=== PATIENT | female | born 1995 | race Caucasian/White ===

== ENCOUNTER 2017-09-23 20:27 | Observation (INO) | payer BC, OTHER ==
[2017-09-23 20:56] LABS: Glucose,Whole Blood 129 mg/dL (75-99)
[2017-09-23 21:39] LABS: Basophils % (A) 1 %; Eosinophils % (A) 0 %; HCT 40.1 % (34.0-46.0); HGB 13.8 gm/dL (11.4-16.0); Lymphocytes # (A) 1.3 k/uL (1.0-4.8); Lymphocytes % (A) 23 %; MCH 30.4 pg (25.0-35.0); MCHC 34.4 g/dL (31.0-37.0); MCV 88.4 fL (80.0-100.0); Mean Platelet Volume 7.6; Monocytes # (A) 0.4 k/uL (0-1.0); Monocytes % (A) 7 %; Neutrophils # (A) 3.9 k/uL (1.3-7.7); Neutrophils % (A) 66 %; Platelet Count 203 k/uL (150-450); RBC 4.54 m/uL (3.80-5.40); RDW 12.5 % (11.5-15.5); WBC 5.9 k/uL (3.8-10.6)
[2017-09-23 21:55] LABS: ALT 20 U/L (9-52); AST 20 U/L (14-36); Albumin 4.4 g/dL (3.5-5.0); Alkaline Phosphatase 77 U/L (38-126); Anion Gap 14 mmol/L; Blood Urea Nitrogen 13 mg/dL (7-17); Calcium 9.5 mg/dL (8.4-10.2); Carbon Dioxide 29 mmol/L (22-30); Chloride 99 mmol/L (98-107); Glucose 114 mg/dL (74-99); Potassium 3.4 mmol/L (3.5-5.1); Sodium 142 mmol/L (137-145); Total Bilirubin 0.7 mg/dL (0.2-1.3); Total Protein 7.9 g/dL (6.3-8.2)
[2017-09-23 21:59] LABS: RBC,Urine >182 /hpf (0-5)
[2017-09-23 22:01] LABS: Appearance,Urine Bloody (Clear)
[2017-09-23 22:02] LABS: Color,Urine Dark Red
--- NOTE | 2017-09-23 22:21 | ED ---
Dizziness HPI - General Chief Complaint: Dizziness Stated Complaint: dizziness/lightheaded Time Seen by Provider: 09/23/17 22:00 Source: patient, RN notes reviewed Mode of arrival: ambulatory Limitations: no limitations - History of Present Illness Initial Comments: This is a 22-year-old female who presents with complaints of some lightheadedness dizziness nausea. She states she's had episodes of these since 2012 she presents tonight with the above complaints as well as a heart rate about 120. She has no chest pain fevers chills sweats she states she has a history of having thyroid problems in the past he currently is on no medication. She currently is on her menstrual period she denies any street drugs alcohol or tobacco. No other complaints at this time she states there is a history of diabetes and both says her family and her mother at early age from a stroke. MD Complaint: dizziness, lightheadedness, other - Related Data Home Medications Medication Instructions Recorded Confirmed No Known Home Medications [No 09/23/17 09/23/17 Known Home Medications] Allergies Allergy/AdvReac Type Severity Reaction Status Date / Time No Known Allergies Allergy Verified 09/23/17 21:53 Review of Systems ROS Statement: Those systems with pertinent positive or pertinent negative responses have been documented in the HPI. ROS Other: All systems not noted in ROS Statement are negative. Past Medical History Past Medical History: No Reported History History of Any Multi-Drug Resistant Organisms: None Reported Past Surgical History: No Surgical Hx Reported Past Psychological History: No Psychological Hx Reported Smoking Status: Never smoker Past Alcohol Use History: Rare Past Drug Use History: None Reported General Exam - General Exam Comments Initial Comments: This is a well-developed well-nourished awake alert oriented 3 female Limitations: no limitations General appearance: alert, anxious Head exam: Present: atraumatic, normocephalic, normal inspection Eye exam: Present: normal appearance, PERRL, EOMI. Absent: scleral icterus, conjunctival injection, periorbital swelling ENT exam: Present: normal exam, mucous membranes moist Neck exam: Present: normal inspection, full ROM, thyromegaly, other (No stridor JVD or bruits she states was some slight tenderness about her thyroid on palpation no nodules are palpable.). Absent: tenderness, meningismus, lymphadenopathy Respiratory exam: Present: normal lung sounds bilaterally. Absent: respiratory distress, wheezes, rales, rhonchi, stridor Cardiovascular Exam: Present: normal rhythm, tachycardia, normal heart sounds. Absent: systolic murmur, diastolic murmur, rubs, gallop, clicks GI/Abdominal exam: Present: soft, normal bowel sounds. Absent: distended, tenderness, guarding, rebound, rigid Extremities exam: Present: normal inspection, full ROM, normal capillary refill. Absent: tenderness, pedal edema, joint swelling, calf tenderness Back exam: Present: normal inspection Neurological exam: Present: alert, oriented X3, CN II-XII intact Psychiatric exam: Present: normal affect, normal mood Skin exam: Present: warm, dry, intact, normal color. Absent: rash Course Vital Signs 09/23/17 09/23/17 20:52 22:10 Temperature 99.1 F Pulse Rate 121 H 113 H Respiratory 16 18 Rate Blood Pressure 136/93 141/81 O2 Sat by Pulse 96 98 Oximetry EKG Findings - EKG Results: EKG: interpreted by ERMD, sinus rhythm (Sinus tachycardia rate of 109. Interval 122 QRS 82 QT since QTC 3:30/447 occasional PVC noted.) Medical Decision Making - Medical Decision Making I did reevaluate patient several occasions she still remains tachycardic even after fluid challenging. I did discuss case with her family as well as with Dr. Tyler patient will be admitted for observation for evaluation of tachycardia presentation of dizziness and lightheadedness. - Lab Data Result diagrams: 09/23/17 21:12 09/23/17 21:12 Lab Results 09/23/17 09/23/17 09/23/17 Range/Units 20:55 21:12 21:12 WBC 5.9 (3.8-10.6) k/uL RBC 4.54 (3.80-5.40) m/uL Hgb 13.8 (11.4-16.0) gm/dL Hct 40.1 (34.0-46.0) % MCV 88.4 (80.0-100.0) fL MCH 30.4 (25.0-35.0) pg MCHC 34.4 (31.0-37.0) g/dL RDW 12.5 (11.5-15.5) % Plt Count 203 (150-450) k/uL Neutrophils % 66 % Lymphocytes % 23 % Monocytes % 7 % Eosinophils % 0 % Basophils % 1 % Neutrophils # 3.9 (1.3-7.7) k/uL Lymphocytes # 1.3 (1.0-4.8) k/uL Monocytes # 0.4 (0-1.0) k/uL Eosinophils # 0.0 (0-0.7) k/uL Basophils # 0.0 (0-0.2) k/uL D-Dimer (<0.60) mg/L FEU Sodium 142 (137-145) mmol/L Potassium 3.4 L (3.5-5.1) mmol/L Chloride 99 (98-107) mmol/L Carbon Dioxide 29 (22-30) mmol/L Anion Gap 14 mmol/L BUN 13 (7-17) mg/dL Creatinine 0.56 (0.52-1.04) mg/dL Est GFR (CKD-EPI)AfAm >90 (>60 ml/min/1.73 sqM) Est GFR (CKD-EPI)NonAf >90 (>60 ml/min/1.73 sqM) Glucose 114 H (74-99) mg/dL POC Glucose (mg/dL) 129 H (75-99) mg/dL POC Glu [employer] Supervisor ID Vanessa Vogt Calcium 9.5 (8.4-10.2) mg/dL Magnesium (1.6-2.3) mg/dL Total Bilirubin 0.7 (0.2-1.3) mg/dL AST 20 (14-36) U/L ALT 20 (9-52) U/L Alkaline Phosphatase 77 (38-126) U/L Total Creatine Kinase (30-135) U/L CK-MB (CK-2) (0.0-2.4) ng/mL CK-MB (CK-2) Rel Index Troponin I (0.000-0.034) ng/mL Total Protein 7.9 (6.3-8.2) g/dL Albumin 4.4 (3.5-5.0) g/dL TSH (0.465-4.680) mIU/L Free T4 (0.78-2.19) ng/dL Urine Color Urine Appearance (Clear) Urine RBC (0-5) /hpf Urine HCG, Qual (Not Detectd) 09/23/17 09/23/17 09/23/17 Range/Units 21:12 21:12 21:12 WBC (3.8-10.6) k/uL RBC (3.80-5.40) m/uL Hgb (11.4-16.0) gm/dL Hct (34.0-46.0) % MCV (80.0-100.0) fL MCH (25.0-35.0) pg MCHC (31.0-37.0) g/dL RDW (11.5-15.5) % Plt Count (150-450) k/uL Neutrophils % % Lymphocytes % % Monocytes % % Eosinophils % % Basophils % % Neutrophils # (1.3-7.7) k/uL Lymphocytes # (1.0-4.8) k/uL Monocytes # (0-1.0) k/uL Eosinophils # (0-0.7) k/uL Basophils # (0-0.2) k/uL D-Dimer (<0.60) mg/L FEU Sodium (137-145) mmol/L Potassium (3.5-5.1) mmol/L Chloride (98-107) mmol/L Carbon Dioxide (22-30) mmol/L Anion Gap mmol/L BUN (7-17) mg/dL Creatinine (0.52-1.04) mg/dL Est GFR (CKD-EPI)AfAm (>60 ml/min/1.73 sqM) Est GFR (CKD-EPI)NonAf (>60 ml/min/1.73 sqM) Glucose (74-99) mg/dL POC Glucose (mg/dL) (75-99) mg/dL POC Glu [employer] Supervisor ID Calcium (8.4-10.2) mg/dL Magnesium 2.2 (1.6-2.3) mg/dL Total Bilirubin (0.2-1.3) mg/dL AST (14-36) U/L ALT (9-52) U/L Alkaline Phosphatase (38-126) U/L Total Creatine Kinase (30-135) U/L CK-MB (CK-2) (0.0-2.4) ng/mL CK-MB (CK-2) Rel Index Troponin I (0.000-0.034) ng/mL Total Protein (6.3-8.2) g/dL Albumin (3.5-5.0) g/dL TSH 5.610 H (0.465-4.680) mIU/L Free T4 0.92 (0.78-2.19) ng/dL Urine Color Dark Red Urine Appearance Bloody H (Clear) Urine RBC >182 H (0-5) /hpf Urine HCG, Qual Not Detected (Not Detectd) 09/23/17 09/23/17 Range/Units 21:12 21:12 WBC (3.8-10.6) k/uL RBC (3.80-5.40) m/uL Hgb (11.4-16.0) gm/dL Hct (34.0-46.0) % MCV (80.0-100.0) fL MCH (25.0-35.0) pg MCHC (31.0-37.0) g/dL RDW (11.5-15.5) % Plt Count (150-450) k/uL Neutrophils % % Lymphocytes % % Monocytes % % Eosinophils % % Basophils % % Neutrophils # (1.3-7.7) k/uL Lymphocytes # (1.0-4.8) k/uL Monocytes # (0-1.0) k/uL Eosinophils # (0-0.7) k/uL Basophils # (0-0.2) k/uL D-Dimer 0.74 H (<0.60) mg/L FEU Sodium (137-145) mmol/L Potassium (3.5-5.1) mmol/L Chloride (98-107) mmol/L Carbon Dioxide (22-30) mmol/L Anion Gap mmol/L BUN (7-17) mg/dL Creatinine (0.52-1.04) mg/dL Est GFR (CKD-EPI)AfAm (>60 ml/min/1.73 sqM) Est GFR (CKD-EPI)NonAf (>60 ml/min/1.73 sqM) Glucose (74-99) mg/dL POC Glucose (mg/dL) (75-99) mg/dL POC Glu [employer] Supervisor ID Calcium (8.4-10.2) mg/dL Magnesium (1.6-2.3) mg/dL Total Bilirubin (0.2-1.3) mg/dL AST (14-36) U/L ALT (9-52) U/L Alkaline Phosphatase (38-126) U/L Total Creatine Kinase 57 (30-135) U/L CK-MB (CK-2) 0.4 (0.0-2.4) ng/mL CK-MB (CK-2) Rel Index 0.7 Troponin I <0.012 (0.000-0.034) ng/mL Total Protein (6.3-8.2) g/dL Albumin (3.5-5.0) g/dL TSH (0.465-4.680) mIU/L Free T4 (0.78-2.19) ng/dL Urine Color Urine Appearance (Clear) Urine RBC (0-5) /hpf Urine HCG, Qual (Not Detectd) - Radiology Data Radiology results: report reviewed (I did review the imaging and reports no acute findings.), image reviewed Disposition Clinical Impression: Tachycardia, Dizziness, Hypokalemia Disposition: ADMITTED IP TO THIS [facility] Condition: Stable Referrals: None,Stated [Primary Care Provider] - 1-2 days
--- NOTE | 2017-09-23 22:36 | XR ---
EXAMINATION TYPE: XR chest 2V DATE OF EXAM: 09/23/2017 COMPARISON: NONE HISTORY: Dizziness TECHNIQUE: Frontal and lateral views of the chest are obtained. FINDINGS: Heart and mediastinum are normal. Lungs are clear. Diaphragm is normal. Bony thorax and so ft tissues appear normal. IMPRESSION: Normal chest
[2017-09-23 22:52] LABS: Magnesium 2.2 mg/dL (1.6-2.3)
[2017-09-23 22:56] LABS: Creatine Kinase 57 U/L (30-135)
[2017-09-23 23:10] LABS: Creatine Kinase MB 0.4 ng/mL (0.0-2.4); Troponin I <0.012 ng/mL (0.000-0.034)
[2017-09-23] MEDS ORDERED: SODIUM CHLORIDE 0.9% 1,000 ML IV STA (23:34)
[2017-09-23] MEDS ORDERED: RX INFO: IV CONTRAST WAS GIVEN 1 EACH MISC MISCELLANE PRN (23:36)
[2017-09-23 23:48] LABS: T4, Free (Free Thyroxine) 0.92 ng/dL (0.78-2.19)
--- NOTE | 2017-09-24 00:30 | CT ---
EXAMINATION TYPE: CT angio chest DATE OF EXAM: 09/24/2017 12:23 AM COMPARISON: NONE HISTORY: R/O pE CT DLP: 481.90 mGycm Automated exposure control for dose reduction was used. CONTRAST: CTA scan of the thorax is performed with IV Contrast, patient injected with 100 mL of Omnipaque 350, pulmonary embolism protocol. There are 3-D post processed images.. FINDINGS: The lungs are clear of infiltrate. There is no evidence of a pulmonary mass. There is no pleural effu selena. There is no pericardial effusion. I see no filling defects in the pulmonary arteries. There is no mediastinal adenopathy. There are no hilar masses. There is no evidence of aortic aneurysm or dissection. The bony thorax appears intact. IMPRESSION: NEGATIVE EXAM. NO EVIDENCE OF PULMONARY EMBOLISM.
[2017-09-24] MEDS ORDERED: NALOXONE 0.4 MG/ML 1 ML VIAL IV PRN (00:43)
[2017-09-24] MEDS ORDERED: 0.9% NACL WITH KCL 20 MEQ/L 1,000 ML IV SCH (00:45)
[2017-09-24] MEDS ORDERED: POTASSIUM CHLORIDE ER 20 MEQ TAB.ER PO STA (00:45)
--- NOTE | 2017-09-24 08:56 | ECHOF ---
Referral Reason:Tachycardia, dizziness MEASUREMENTS -------- HEIGHT: 160.0 cm WEIGHT: 93.9 kg BP: 133/87 RVIDd: 1.9 cm (< 3.3) IVSd: 0.9 cm (0.6 - 1.1) LVIDd: 4.2 cm (3.9 - 5.3) LVPWd: 1.2 cm (0.6 - 1.1) IVSs: 1.4 cm LVIDs: 2.5 cm LVPWs: 1.7 cm LAESV Index (A-L): 14.76 ml/m Ao Diam: 2.6 cm (2.0 - 3.7) AV Cusp: 1.9 cm (1.5 - 2.6) LA Diam: 3.1 cm (2.7 - 3.8) MV EXCURSION: 15.184 mm (> 18.000) MV EF SLOPE: 78 mm/s (70 - 150) EPSS: 0.7 cm MV E Jeffy: 0.68 m/s MV DecT: 210 ms MV A Jeffy: 0.56 m/s MV E/A Ratio: 1.20 RAP: 5.00 mmHg RVSP: 30.81 mmHg FINDINGS -------- Sinus rhythm. This was a technically good study. The left ventricular size is normal. Left ventricular wall thickness is normal. Overall left vent ricular systolic function is normal with, an EF between 55 - 60 %. The right ventricle is normal in size and function. The left atrium is normal in size. The right atrium is normal in size. The aortic valve is trileaflet, and appears structurally normal. No aortic stenosis or regurgitation. There is trace mitral regurgitation. Trace tricuspid regurgitation present. The right ventricular systolic pressure, as measured by Dopp ler, is 30.81mmHg. Pulmonic valve appears structurally normal. The aortic root size is normal. Normal inferior vena cava with normal inspiratory collapse consistent with estimated right atrial pre ssure of 5 mmHg. There is a trivial pericardial effusion present. CONCLUSIONS -------- 1. Sinus rhythm. 2. This was a technically good study. 3. The left ventricular size is normal. 4. Left ventricular wall thickness is normal. 5. Overall left ventricular systolic function is normal with, an EF between 55 - 60 %. 6. The right ventricle is normal in size and function. 7. The left atrium is normal in size. 8. The right atrium is normal in size. 9. The aortic valve is trileaflet, and appears structurally normal. No aortic stenosis or regurgitati on. 10. There is trace mitral regurgitation. 11. Trace tricuspid regurgitation present. 12. The right ventricular systolic pressure, as measured by Doppler, is 30.81mmHg. 13. Pulmonic valve appears structurally normal. 14. The aortic root size is normal. 15. Normal inferior vena cava with normal inspiratory collapse consistent with estimated right atrial pressure of 5 mmHg. 16. There is a trivial pericardial effusion present. SUPERVISOR TESTING: Joan Baeza RDCS
--- NOTE | 2017-09-24 11:52 | P.CRDCN ---
History of Present Illness Consult date: 09/24/17 History of present illness: Mrs. Iyer is a pleasant 22-year-old female with no significant past medical history. She denies history or coronary artery disease, hypertension, dyslipidemia or diabetes mellitus. She has never seen a fuel operator for any reason. We have been asked to see her in consultation for tachycardia. On Friday of this week she started feeling dizzy and nauseated. The episode occurred when she stood up to try and walk to the bathroom and lasted about 10 minutes. At first she felt lightheaded but when she tried to walk the room started spinning. She has also experienced extreme chills over the past 4 days with sore throat. No fevers. The symptoms have been intermittent since then with no aggravating or alleviating factors. She states she has had this going on intermittently since 2012. She is on her menstrual cycle currently. EKG on arrival reveals sinus tachycardia with one PVC, rate 109. No evidence of ST or T-wave abnormality. No old for comparison. Chest xray negative for an acute cardiopulmonary process. CTA negative for pulmonary embolism or aortic aneurysm/dissection. Echocardiogram performed reveals preserved left ventricular systolic function with ejection fraction 55-60% with trace TR and trivial pericardial effusion. Laboratory data reviewed, hemoglobin 13.8, platelets 203, d-dimer 0.74, potassium 3.4, magnesium 2.2, creatinine 0.56, cardiac enzymes negative 1, TSH 5.6, free T4 0.92. She takes no daily medications. Review of Systems At the time of my exam: CONSTITUTIONAL: Denies fever. Denies chills. EYES: Denies blurred vision. Denies vision changes. Denies eye pain. EARS, NOSE, MOUTH & THROAT: Denies headache. Denies sore throat. Denies ear pain. CARDIOVASCULAR: Denies chest pain. Denies shortness of breath. Denies orthopnea. Denies PND. Denies palpitations. RESPIRATORY: Denies cough. GASTROINTESTINAL: Denies abdominal pain. Denies diarrhea. Denies constipation. Denies nausea. Denies vomiting. MUSCULOSKELETAL: Denies myalgias. INTEGUMENTARY: Denies pruitis. Denies rash. NEUROLOGIC: Denies numbness. Denies tingling. Denies weakness. PSYCHIATRIC: Denies anxiety. Denies depression. ENDOCRINE: Denies fatigue. Denies weight change. Denies polydipsia. Denies polyurina. GENITOURINARY: Denies burning, hematuria or urgency with micturation. HEMATOLOGIC: Denies history of anemia. Denies bleeding. Past Medical History Past Medical History: No Reported History History of Any Multi-Drug Resistant Organisms: None Reported Past Surgical History: No Surgical Hx Reported Past Psychological History: No Psychological Hx Reported Smoking Status: Never smoker Past Alcohol Use History: Rare Past Drug Use History: None Reported Medications and Allergies Home Medications Medication Instructions Recorded Confirmed Type No Known Home Medications [No 09/23/17 09/23/17 History Known Home Medications] Allergies Allergy/AdvReac Type Severity Reaction Status Date / Time No Known Allergies Allergy Verified 09/23/17 21:53 Physical Exam Vitals: Vital Signs Temp Pulse Pulse Resp BP Pulse Ox 09/24/17 08:46 100.1 F H 107 H 15 129/89 97 09/24/17 08:02 96 16 133/87 96 09/24/17 06:36 95 20 129/74 95 09/24/17 05:43 102 H 18 131/85 96 09/24/17 04:39 101 H 16 129/71 96 09/24/17 03:31 104 H 18 127/73 98 09/24/17 02:54 110 H 18 144/87 98 09/24/17 01:39 107 H 18 159/87 99 09/24/17 00:47 115 H 18 143/88 98 09/23/17 22:11 115 H 09/23/17 22:10 113 H 18 141/81 98 09/23/17 20:52 99.1 F 121 H 16 136/93 96 Intake and Output 09/23/17 09/24/17 09/24/17 22:59 06:59 14:59 Other: Weight 93.894 kg Blood pressure 129/89 heart rate 107 temperature 100.1F maintaining oxygen saturation on room air GENERAL: This is a 22-year-old female in no apparent distress at the time of my examination. Obese. HEENT: Head is atraumatic, normocephalic. Pupils are equal, round. Sclerae anicteric. Conjunctivae are clear. Mucous membranes of the mouth are moist. Neck is supple. There is no jugular venous distention. No carotid bruit is heard. LUNGS: Clear to auscultation no wheezes, rales or rhonchi. No chest wall tenderness is noted on palpation or with deep breathing. HEART: Regular rate and rhythm without murmurs, rubs or gallops. S1 and S2 heard. ABDOMEN: Soft, nontender. Bowel sounds are heard. No organomegaly noted. EXTREMITIES: No evidence of peripheral edema and no calf tenderness noted. VASCULAR: Radial and dorsalis pedis pulses palpated, no evidence of clubbing. NEUROLOGIC: Patient is awake, alert and oriented x3. Results 09/23/17 21:12 09/23/17 21:12 Cardiac Enzymes 09/23/17 09/23/17 Range/Units 21:12 21:12 AST 20 (14-36) U/L CK-MB (CK-2) 0.4 (0.0-2.4) ng/mL Troponin I <0.012 (0.000-0.034) ng/mL CBC 09/23/17 Range/Units 21:12 WBC 5.9 (3.8-10.6) k/uL RBC 4.54 (3.80-5.40) m/uL Hgb 13.8 (11.4-16.0) gm/dL Hct 40.1 (34.0-46.0) % Plt Count 203 (150-450) k/uL Comprehensive Metabolic Panel 09/23/17 Range/Units 21:12 Sodium 142 (137-145) mmol/L Potassium 3.4 L (3.5-5.1) mmol/L Chloride 99 (98-107) mmol/L Carbon Dioxide 29 (22-30) mmol/L BUN 13 (7-17) mg/dL Creatinine 0.56 (0.52-1.04) mg/dL Glucose 114 H (74-99) mg/dL Calcium 9.5 (8.4-10.2) mg/dL AST 20 (14-36) U/L ALT 20 (9-52) U/L Alkaline Phosphatase 77 (38-126) U/L Total Protein 7.9 (6.3-8.2) g/dL Albumin 4.4 (3.5-5.0) g/dL Current Medications Generic Name Dose Route Start Last Admin Trade Name Freq PRN Reason Stop Dose Admin Potassium Chloride/Sodium Chloride 1,000 mls @ 50 mls/hr 09/24/17 00:45 09/24 01:35 Ns-Kcl 20 Meq/L Iv Solution IV 50 mls/hr .Q20H DEEJAY Administration Miscellaneous Information 1 each 09/23/17 23:36 09/23/17 23:46 Rx Info: Iv Contrast Was Given MISCELLANE 09/25/17 23:36 1 each DAILY PRN Administration Per Protocol Naloxone HCl 0.2 mg 09/24/17 00:43 Narcan IV Q2M PRN Opioid Reversal Intake and Output 09/23/17 09/24/17 09/24/17 22:59 06:59 14:59 Other: Weight 93.894 kg 09/23/17 21:12 09/23/17 21:12 Assessment and Plan Assessment: ASSESSMENT 1. Sinus tachycardia with dizziness, nausea and diaphoresis. Febrile. PE ruled out. 2. Febrile illness with throat pain and possible inner ear problem with vertigo like symptoms. 3. Hypokalemia, receiving supplementation in IV fluids as well as PO potassium last night PLAN 2D echocardiogram and doppler study has been reviewed. Obtain orthostatic blood pressures. Continue with IV hydration and medical management of possible viral illness. Stable from a cardiac perspective. No further inpatient work-up needed. Thank you kindly for this consultation. Nurse Practitioner note has been reviewed, I agree with a documented findings and plan of care. Patient was seen and examined.
--- NOTE | 2017-09-24 15:14 | HP ---
HISTORY AND PHYSICAL DATE OF ADMISSION: September 24, 2017. PRESENT COMPLAINT: Dizziness. HISTORY OF PRESENTING COMPLAINT: This is a 22-year-old patient. The patient does not take any medications at home. She has had different symptoms. She says she comes in because she has been dizzy on and off for a long time, but more so recently. Her boyfriend is present who she lives with. Normally, she will get episodes of dizziness that lasts for a few minutes and then goes away. This time she was dizzy for much longer for well over 2 hours, she thinks at least. Had some nausea. Denies any ear symptoms. Did have a bit of a sore throat. This dizziness is not necessarily related to activity. She is able to walk but sometimes a bit slow she says. No focal weakness in the arms or legs. No change in vision. Denies any fever. She was a bit tachycardic when she came to the ER. Slightly elevated D-dimer. PE was ruled out ruled out. The patient does feel a bit tired. REVIEW OF SYSTEMS: Constitutional: Tired. Appetite is good. No weight loss. HEENT none. Respiratory none. Cardiovascular no chest pain. Gastrointestinal: Some nausea. none. Musculoskeletal none. Dermatological and hematologic, lymphatic none. Psychiatry none. Neurological as above including no headaches. PAST MEDICAL HISTORY: None. PAST SURGICAL HISTORY: None. SOCIAL HISTORY: Lives with a boyfriend. 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 She denies alcohol, drugs, or smoking. FAMILY HISTORY: Reviewed noncontributory to presentation. HOME MEDICATIONS: None. ALLERGIES: None. PHYSICAL EXAMINATION: On examination vital signs on presentation temperature 99.1, pulse 121, respiration 16, blood pressure 136/93, pulse ox 96% on room air. GENERAL APPEARANCE: Overweight, BMI 36.7, sitting up. Eyes: Pupils equal. Conjunctivae normal. HEENT: Hair is colored green. External appearance of nose and ears normal. Oral cavity normal. Neck JVD not raised. Mass not palpable. Respiratory effort normal. Lungs fair entry. Cardiovascular 1st and second sounds normal. No edema. ABDOMEN: Soft, nontender. Liver and spleen not palpable. Lymphatics: No lymph nodes palpable in the neck and axilla. PSYCHIATRY: Alert and orient x3. Mood and affect normal. Neurological: Pupils equal. Cranial nerves grossly intact. Power and sensation grossly intact. INVESTIGATIONS: White count 5.9. D-dimer 0.74. Potassium 3.4, BUN and creatinine is normal. TSH 5.6, free T4 0.92. Chest CTA negative for PE. Chest x-ray negative. The EKG shows normal sinus rhythm. 2D echocardiogram appears to be normal. ASSESSMENT: 1. This is a patient who presents with dizziness coming on and off for quite some time for very short-lived for about 2 minutes to 3 minutes, but has a much worsening episode in the last 2 weeks, more so yesterday, had some nausea. Denies any ear symptoms. The patient has a low-grade fever, likely from viral pharyngitis. Need to rule out a central cause of her presentation. 2. Subclinical hypothyroid in a patient whose TSH is less than 10. Free T4 was on the lower side of normal. The patient definitely is overweight, tired, may benefit from a small dose of Synthroid. 3. Obesity BMI 36.7. PLAN: We will go ahead and order an MRI of the brain, get a neurological opinion. I started the patient on Synthroid 25 mcg. Cardiology was consulted because of the tachycardia. Care was discussed with the patient and boyfriend. MMODL / IJN: [id number] /
[2017-09-24] MEDS: LEVOTHYROXINE 25 MCG TAB PO SCH (17:06)
[2017-09-24] MEDS: ENOXAPARIN 40 MG/0.4 ML SYRINGE SQ SCH (17:07)
[2017-09-24] MEDS: MECLIZINE 12.5 MG TAB PO SCH ×3 (17:08→21:30)
[2017-09-24 19:50] VITALS: RESP 16
--- NOTE | 2017-09-24 22:37 | MR ---
EXAMINATION TYPE: MR brain wo con DATE OF EXAM: 09/24/2017 COMPARISON: NONE HISTORY: 22-year-old female recurrent dizziness TECHNIQUE: Multiplanar, multisequence images of the brain and brainstem were acquired without IV con trast. Diffusion weighted imaging is performed. FINDINGS: No evidence for acute infarction, hemorrhage, mass, mass effect, midline shift, herniation, effacemen t of basal cisterns, or extra-axial fluid collection. The ventricles and sulci are age-appropriate. Major intracranial flow voids are intact. T2/FLAIR weighted sequences show no white matter signal abnormality. Midline structures demonstrate normal morphology. The craniocervical junction is normal. Mild mucosal thickening within the ethmoid air cells and maxillary sinuses. Globes are intact. IMPRESSION: No intracranial abnormality seen. Mild chronic ethmoid and maxillary sinus disease.
[2017-09-25] MEDS: LEVOTHYROXINE 25 MCG TAB PO SCH (06:43)
[2017-09-25 08:06] VITALS: BP 127/76; PULSE 83; TEMP 99.4
[2017-09-25] MEDS: MECLIZINE 12.5 MG TAB PO SCH ×2 (09:00→16:28)
[2017-09-25] MEDS: ENOXAPARIN 40 MG/0.4 ML SYRINGE SQ SCH (09:00)
--- NOTE | 2017-09-25 09:39 | CONS ---
CONSULTATION DATE OF CONSULTATION: 09/24/2017 CHIEF COMPLAINT: Dizziness. HISTORY OF PRESENT ILLNESS: The patient is a pleasant 22-year-old, female, who was being evaluated today on 09/24/2017 by the neurology service per the request of Dr. Tyler for dizziness. The patient was brought into [facility] Emergency Room with the complaints of dizziness that began suddenly. She describes the dizziness as an off balance sensation with occasional vertigo. Her symptoms lasted several hours which prompted her to come to the emergency room. She states that she has had similar symptoms, but those were only lasting a few seconds to a few minutes in the past. She denies any lateralizing numbness or weakness. She reported that her body position did not affect the severity of the dizziness. She denies any recent head injuries. In the emergency room, her laboratory workup showed a normal CBC and cardiac enzymes. Her comprehensive metabolic profile was normal except for minimal hypokalemia at 3.4. Her TSH was slightly elevated at 5.61, but her T4 level was normal. Her D-dimer was slightly elevated at 0.74. She did undergo a CT angiogram of the chest which showed no evidence of any pulmonary embolism. The patient was given Antivert 12.5 mg and admitted for further workup and management to the observation unit. At the time of my evaluation, she reports that her symptoms have significantly improved with her Antivert dose. PAST MEDICAL HISTORY: Negative. SOCIAL HISTORY: She denies any tobacco, alcohol or drug use. FAMILY HISTORY: Noncontributory. HOME MEDICATIONS: None. ALLERGIES: No known drug allergies. REVIEW OF SYSTEMS: As mentioned above and otherwise negative. PHYSICAL EXAM: Vital signs show a temperature of 98.4, pulse 105, respirations 17, blood pressure 141/75. GENERAL APPEARANCE: The patient is a well-developed female, who appears to be in no acute distress. HEENT: Normocephalic, atraumatic, no facial asymmetry is seen, extraocular muscles are intact with no nystagmus noticed. NECK: Supple with no masses felt. CARDIOVASCULAR: Regular rate and rhythm. ABDOMEN: Nontender, nondistended. Extremities showed no edema or clubbing. NEUROLOGICAL EXAM: The patient is alert, aware and oriented x3. Speech and language are normal. Strength is full in all 4 extremities. Sensory exam was normal to light touch in all 4 extremities. No tremors or seizure-like activity is seen. No facial asymmetry is noticed on cranial nerve testing. IMPRESSION: 1. Vertigo. 2. Mild hypokalemia. RECOMMENDATION: The patient's symptoms are consistent with vertigo but it is atypical as symptoms are not affected by any change in position. An MRI of the brain has been ordered. I will order an EEG. Her symptoms have significantly improved with her Antivert dosing. Continue Antivert as needed. If her MRI of the brain comes back negative, she will be cleared for discharge from a neurology standpoint. She has no other neurological complaints and no abnormalities noticed on her neurological examination. I will continue to follow with you as needed. Thank you for allowing me to participate in the care of your patient. If you have any questions, please feel free to contact me. RAEANN / JAMES: [id number] /
--- NOTE | 2017-09-25 15:27 | DS ---
DISCHARGE SUMMARY DATE OF ADMISSION: 09/24/17. DATE OF DISCHARGE: 09/25/17 FINAL DIAGNOSES: 1. Possible acute vestibulitis. 2. Hypothyroid, new diagnosis. 3. Obesity, BMI 36.7. HOSPITAL COURSE: This patient presented with dizziness and given Antivert which she felt actually better with. The patient's TSH was slightly high at 5.6 and free T4 in the low normal side. She is put on a small dose of Synthroid. She had no further symptoms of symptoms. Chest CTA was negative for PE. Did have a 2-D echocardiogram that shows preserved LV function. The patient is cleared by Dr. Coffey and Cardiology, Dr. Antonio. EXAM: Lungs are clear. Cardiovascular: First and second sounds normal. DC MEDICATIONS: 1. Synthroid 25 mcg a day. 2. Antivert 12.5, t.i.d. for 6 tablets. FOLLOWUP: Follow up with Dr. Coffey in 1 week, Dr. Land in 3 days. Additionally, patient MRI of the brain was unremarkable. X-ray showing some sinusitis. EEG was pending. Got an order from them to let the patient to go home. MMODL / IJN: [id number] /
--- NOTE | 2017-09-25 18:12 | EEG ---
ELECTROENCEPHALOGRAM REPORT DATE OF SERVICE: 09/25/2017. REASON FOR TESTING: Dizziness. DESCRIPTION OF THE PROCEDURE: This EEG was performed using a 21 channel digital electroencephalograph, following international 10-20 system. DESCRIPTION OF THE RECORDING: From the beginning of the tracing, and with patient's eyes closed, the background rhythm was mostly consisting of 10 Hz alpha frequency in the posterior occipital leads. No obvious asymmetry is seen. Frequent movement and muscle artifacts are seen. Photic stimulation was performed with a minimal driving response seen. No pathological waves were elicited. Hyperventilation was not performed. Later in the tracing, the patient does reach stage II of sleep, and occasional K complexes and sleep spindles are seen. No epileptiform discharges were seen. Her EKG lead showed a regular rate and rhythm. INTERPRETATION: This asleep and awake EEG can be considered within normal limits. There is no asymmetry seen. No epileptiform discharges were noticed. The absence of epileptiform discharges does not rule out the diagnosis of epilepsy, therefore clinical correlation is recommended. MMJUAN LUIS / AICHAN: [id number] /
--- NOTE | 2017-09-26 05:40 | P.PN ---
Subjective Progress Note Date: 09/25/17 Principal diagnosis: Dizziness Interval Update: 09/25/17: Neurology is following on a 22-year-old female being for dizziness. Patient was brought to the ED for dizziness and disequilibrium like symptoms. Patient does describes experiencing these occurrences since she was a young girl but they have recentluy become more frequent and more intense. Patient's symptoms increase in our around her menstraul cycle. Patient denies her body position affects intensity, frequency or duration. Denies any recent head or neck trauma. Currently laboratory bloodwork was normal including CBC, CMP with the exception of hypokalemia. TSH was slightly elevated but T4 was normal. D- dimer was slightly elevated but CT of the chest noted no abnormalities. Patient was given Antivert in the ED and admitted for further observation and workup. Objective - Vital Signs Vital signs: Vital Signs Temp 99.4 F 09/25/17 08:00 Pulse 83 09/25/17 08:00 Resp 16 09/25/17 08:00 BP 127/76 09/25/17 08:00 Pulse Ox 98 09/25/17 08:00 Intake & Output 09/25/17 09/25/17 09/26/17 06:59 18:59 06:59 Weight 91.6 kg Other: Voiding Method Toilet Toilet # Voids 1 - Exam General appearance: Alert & oriented x4, no apparent distress. Head: Atraumatic, normocephalic, normal inspection Eyes: Well appearance, PERRLA, EOMI. Absent scleral icterus, conjunctival injection, nystagmus, periorbital swelling. Ear, nose and throat: Normal exam, mucous membranes moist Neck: Normal inspection, absent tenderness, lymphadenopathy. Respiratory: No increased work of breathing Cardiovascular: Regular rate, rhythm GI/abdominal: Normal bowel sounds, nondistended, no tenderness, no guarding, no rebound, no rigidity. Extremities: All range of motion, normal capillary refill, no tenderness, pedal edema joint swelling, calf tenderness. Neurological: cranial nerves II through XII intact no lateralizing weakness no seizure activity noted on physical exam no pronator drift and no nystagmus. no facial asymmetry note Strength was equal and symmetric in all 4 extremities Sensation was normal in all 4 extremities Psychological: Mood and affect appropriate for setting. - Labs CBC & Chem 7: 09/23/17 21:12 09/23/17 21:12 Assessment and Plan (1) Dizziness Status: Acute Code(s): R42 - DIZZINESS AND GIDDINESS SNOMED Code(s): 358611701 (2) Hypokalemia Status: Acute Code(s): E87.6 - HYPOKALEMIA SNOMED Code(s): 10308088 Plan: 1. Dizziness 2. Hypokalemia Patient has had improvement with antivert. He syptoms have abated with medication use. Patient's MRI brain was unremarkable for any contributory etiology. EEG was normal. Status: Patient can be cleared for discharge from a neurological standpoint. I have discussed the plan of care with the physician prior to implementation and he agrees with the plan as implemented.
== END 2017-09-25 16:18 | disposition home or self-care (01) ==
LOC: EC 20:27 → 3OBS 09-24 00:43
PROVIDERS: ADMIT Hospitalist; ATTEND Hospitalist
DX: R42 Dizziness and giddiness (principal); E87.6 Hypokalemia; E03.9 Hypothyroidism, unspecified; E66.9 Obesity, unspecified; Z68.36 Body mass index [BMI] 36.0-36.9, adult; R79.89 Other specified abnormal findings of blood chemistry; R50.9 Fever, unspecified; R07.0 Pain in throat; Z83.3 Family history of diabetes mellitus; Z82.3 Family history of stroke
CPT/HCPCS: 96366 ×16; 96361 ×2; 96365 ×2; 99285 ×2; 36415; 95819; 93005; 93306; 85379; 84439; 80053; 84443; 82550; 82553; 83735; 84484; 85025; 81001; 81025; 71046; 71275; 70551; G0378 ×2; Q9967

== ENCOUNTER 2018-09-14 16:09 | Emergency (ER) | payer BC ==
[2018-09-14] MEDS ORDERED: SODIUM CHLORIDE 0.9% 1,000 ML IV STA (17:26)
[2018-09-14 17:54] LABS: Basophils # (A) 0.1 k/uL (0-0.2); Basophils % (A) 1 %; Eosinophils # (A) 0.2 k/uL (0-0.7); Eosinophils % (A) 2 %; HCT 49.9 % (34.0-46.0); HGB 16.4 gm/dL (11.4-16.0); Lymphocytes # (A) 1.9 k/uL (1.0-4.8); Lymphocytes % (A) 18 %; MCH 30.4 pg (25.0-35.0); MCHC 32.8 g/dL (31.0-37.0); MCV 92.6 fL (80.0-100.0); Mean Platelet Volume 6.2; Monocytes # (A) 0.4 k/uL (0-1.0); Monocytes % (A) 4 %; Neutrophils # (A) 7.5 k/uL (1.3-7.7); Neutrophils % (A) 74 %; Platelet Count 298 k/uL (150-450); RBC 5.39 m/uL (3.80-5.40); RDW 13.2 % (11.5-15.5); WBC 10.1 k/uL (3.8-10.6)
[2018-09-14 18:00] LABS: Appearance,Urine Cloudy (Clear); Bacteria,Urine Occasional /hpf; Bilirubin,Urine Negative (Negative); Blood,Urine Trace (Negative); Color,Urine Yellow; Glucose,Urine (UA) Negative (Negative); Ketones,Urine Negative (Negative); Leukocyte Esterase,Urine Large (Negative); Mucus,Urine Rare /hpf; Nitrite,Urine Negative (Negative); PH, Urine 5.5 (5.0-8.0); Protein,Urine Trace (Negative); RBC,Urine 6 /hpf (0-5); Specific Gravity,Urine 1.024 (1.001-1.035); Squamous Epithelial Cell,Urine 23 /hpf (0-4); Urobilinogen,Urine <2.0 mg/dL (<2.0)
[2018-09-14 18:06] LABS: ALT 33 U/L (9-52); AST 27 U/L (14-36); Albumin 4.8 g/dL (3.5-5.0); Alkaline Phosphatase 80 U/L (38-126); Anion Gap 10 mmol/L; Blood Urea Nitrogen 13 mg/dL (7-17); Calcium 9.7 mg/dL (8.4-10.2); Carbon Dioxide 27 mmol/L (22-30); Chloride 106 mmol/L (98-107); Glucose 104 mg/dL (74-99); Potassium 3.7 mmol/L (3.5-5.1); Sodium 143 mmol/L (137-145); Total Bilirubin 0.4 mg/dL (0.2-1.3); Total Protein 8.4 g/dL (6.3-8.2)
[2018-09-14 19:11] LABS: T4, Free (Free Thyroxine) 0.68 ng/dL (0.78-2.19)
--- NOTE | 2018-09-14 20:08 | ED ---
General Adult HPI - General Chief complaint: Dizziness Stated complaint: light headed Time Seen by Provider: 09/14/18 16:41 Source: patient, RN notes reviewed, old records reviewed Mode of arrival: ambulatory Limitations: no limitations - History of Present Illness Initial comments: 23-year-old female patient with past medical history of hypothyroidism presents to ED with complaint of dizziness and lightheadedness. Patient this very current complaint for approximately 6 years. Patient had a extensive evaluation for this approximately one year ago including CT angiography of brain , MRI of brain, EEG. All the signs of benign that time. Patient presents again with lightheadedness. Patient denies any syncope, presyncope, shortness of breath, chest pain. She denies any headaches, changes in vision. Patient states that this feels similar to the lightheadedness she experienced in the past. Patient states that she primarily wants to check her thyroid level. Patient denies all other complaints. Systemic: Pt denies fatigue, myalgia, fever/chills, rash. Pt denies weakness, night sweats, weight loss. Neuro: Pt denies headache, visual disturbances, syncope or pre-syncope. HEENT: Pt denies ocular discharge or irritation, otalgia, rhinorrhea, pharyngitis or notable lymphadenopathy. Cardiopulmonary: Pt denies chest pain, SOB, heart palpitations, dyspnea on exertion. Abdominal/GI: Pt denies abdominal pain, n/v/d. : Pt denies dysuria, burning w/ urination, frequency/urgency. Denies new onset urinary or bowel incontinence. MSK: Pt denies myalgia, loss of strength or function in extremities. Neuro: Pt denies new onset weakness, paresthesias. - Related Data Home Medications Medication Instructions Recorded Confirmed buPROPion [Wellbutrin] 100 mg PO BID 09/14/18 09/14/18 Previous Rx's Medication Instructions Recorded Levothyroxine Sodium [Synthroid] 25 mcg PO DAILY@0630 #30 tab 09/25/17 Levothyroxine Sodium [Synthroid] 50 mcg PO DAILY 14 Days #14 tab 09/14/18 Allergies Allergy/AdvReac Type Severity Reaction Status Date / Time No Known Allergies Allergy Verified 09/14/18 16:11 Review of Systems ROS Statement: Those systems with pertinent positive or pertinent negative responses have been documented in the HPI. ROS Other: All systems not noted in ROS Statement are negative. Past Medical History Past Medical History: Thyroid Disorder Additional Past Medical History / Comment(s): in past took med for thyroid but taken off it 2012 History of Any Multi-Drug Resistant Organisms: None Reported Past Surgical History: No Surgical Hx Reported Past Anesthesia/Blood Transfusion Reactions: Motion Sickness Additional Past Anesthesia/Blood Transfusion Reaction / Comment(s): never had general aa Past Psychological History: Depression Smoking Status: Former smoker Past Alcohol Use History: None Reported Past Drug Use History: None Reported - Past Family History Father Family Medical History: Diabetes Mellitus Mother Family Medical History: CVA/TIA, Diabetes Mellitus Additional Family Medical History / Comment(s): depression General Exam - General Exam Comments Initial Comments: Constitutional: NAD, AOX3, Pt has pleasant affect. HEENT: NC/AT, trachea midline, neck supple, no lymphadenopathy. Posterior pharynx non erythematous, without exudates. External ears appear normal, without discharge. Mucous membranes moist. Eyes PERRLA, EOM intact. There is no scleral icterus. No pallor noted. Cardiopulmonary: RRR, no murmurs, rubs or gallops, no JVD noted. Lungs CTAB in anterior and posterior yu. No peripheral edema. Abdominal exam: Abdomen soft and non-distended. Abdomen non-tender to palpation in all 4 quadrants. Bowel sounds active in LLQ. No hepatosplenomegaly. No ecchymosis Neuro: CN II-XII intact. No nuchal rigidity. MSK: No posterior calf tenderness bilaterally, homans sign negative bilaterally. Posterior tibialis and radial pulse +2 bilaterally. Sensation intact in upper and lower extremities. Full active ROM in upper and lower extremities, 5/5 stregnth. Limitations: no limitations Course Vital Signs 09/14/18 09/14/18 16:11 19:10 Temperature 98.2 F 98.1 F Pulse Rate 109 H 106 H Respiratory 18 17 Rate Blood Pressure 130/88 158/99 O2 Sat by Pulse 99 99 Oximetry Medical Decision Making - Medical Decision Making 23-year-old female patient with past medical history of hypothyroidism presents to ED with complaint of dizziness and lightheadedness. Patient this very current complaint for approximately 6 years. Patient had a extensive evaluation for this approximately one year ago including CT angiography of brain , MRI of brain, EEG. All the signs of benign that time. Patient presents again with lightheadedness. Patient denies any syncope, presyncope, shortness of breath, chest pain. She denies any headaches, changes in vision. Patient states that this feels similar to the lightheadedness she experienced in the past. Patient states that she primarily wants to check her thyroid level. Patient denies all other complaints. Patient vital signs displayed mild tachycardia. Physical exam did not display acute pathology. Neurologic exam within normal limits. Laboratory evaluations revealed non-impressive CBC, CMP. TSH mildly elevated and free T4 low. UA was contaminated will culture. Shared decision making, pt declined CT due to previous extensive investigations. ECG not concerning for acute ischemia. Patient Synthroid dose increased. Patient will follow up with primary care provider in 1-2 days. Patient additionally follow-up neurologist in which she was previously established. Case discussed with Dr. Tse. - Lab Data Result diagrams: 09/14/18 17:41 09/14/18 17:41 Lab Results 09/14/18 09/14/18 09/14/18 Range/Units 17:41 17:41 17:41 WBC 10.1 (3.8-10.6) k/uL RBC 5.39 (3.80-5.40) m/uL Hgb 16.4 H (11.4-16.0) gm/dL Hct 49.9 H (34.0-46.0) % MCV 92.6 (80.0-100.0) fL MCH 30.4 (25.0-35.0) pg MCHC 32.8 (31.0-37.0) g/dL RDW 13.2 (11.5-15.5) % Plt Count 298 (150-450) k/uL Neutrophils % 74 % Lymphocytes % 18 % Monocytes % 4 % Eosinophils % 2 % Basophils % 1 % Neutrophils # 7.5 (1.3-7.7) k/uL Lymphocytes # 1.9 (1.0-4.8) k/uL Monocytes # 0.4 (0-1.0) k/uL Eosinophils # 0.2 (0-0.7) k/uL Basophils # 0.1 (0-0.2) k/uL Sodium 143 (137-145) mmol/L Potassium 3.7 (3.5-5.1) mmol/L Chloride 106 (98-107) mmol/L Carbon Dioxide 27 (22-30) mmol/L Anion Gap 10 mmol/L BUN 13 (7-17) mg/dL Creatinine 0.59 (0.52-1.04) mg/dL Est GFR (CKD-EPI)AfAm >90 (>60 ml/min/1.73 sqM) Est GFR (CKD-EPI)NonAf >90 (>60 ml/min/1.73 sqM) Glucose 104 H (74-99) mg/dL Calcium 9.7 (8.4-10.2) mg/dL Total Bilirubin 0.4 (0.2-1.3) mg/dL AST 27 (14-36) U/L ALT 33 (9-52) U/L Alkaline Phosphatase 80 (38-126) U/L Total Protein 8.4 H (6.3-8.2) g/dL Albumin 4.8 (3.5-5.0) g/dL TSH 5.600 H (0.465-4.680) mIU/L Free T4 0.68 L (0.78-2.19) ng/dL Urine Color Urine Appearance (Clear) Urine pH (5.0-8.0) Ur Specific [place] (1.001-1.035) Urine Protein (Negative) Urine Glucose (UA) (Negative) Urine Ketones (Negative) Urine Blood (Negative) Urine Nitrite (Negative) Urine Bilirubin (Negative) Urine Urobilinogen (<2.0) mg/dL Ur Leukocyte Esterase (Negative) Urine RBC (0-5) /hpf Urine WBC (0-5) /hpf Ur Squamous Epith Cells (0-4) /hpf Urine Bacteria (None) /hpf Urine Mucus (None) /hpf Urine HCG, Qual Not Detected (Not Detectd) 09/14/18 Range/Units 17:41 WBC (3.8-10.6) k/uL RBC (3.80-5.40) m/uL Hgb (11.4-16.0) gm/dL Hct (34.0-46.0) % MCV (80.0-100.0) fL MCH (25.0-35.0) pg MCHC (31.0-37.0) g/dL RDW (11.5-15.5) % Plt Count (150-450) k/uL Neutrophils % % Lymphocytes % % Monocytes % % Eosinophils % % Basophils % % Neutrophils # (1.3-7.7) k/uL Lymphocytes # (1.0-4.8) k/uL Monocytes # (0-1.0) k/uL Eosinophils # (0-0.7) k/uL Basophils # (0-0.2) k/uL Sodium (137-145) mmol/L Potassium (3.5-5.1) mmol/L Chloride (98-107) mmol/L Carbon Dioxide (22-30) mmol/L Anion Gap mmol/L BUN (7-17) mg/dL Creatinine (0.52-1.04) mg/dL Est GFR (CKD-EPI)AfAm (>60 ml/min/1.73 sqM) Est GFR (CKD-EPI)NonAf (>60 ml/min/1.73 sqM) Glucose (74-99) mg/dL Calcium (8.4-10.2) mg/dL Total Bilirubin (0.2-1.3) mg/dL AST (14-36) U/L ALT (9-52) U/L Alkaline Phosphatase (38-126) U/L Total Protein (6.3-8.2) g/dL Albumin (3.5-5.0) g/dL TSH (0.465-4.680) mIU/L Free T4 (0.78-2.19) ng/dL Urine Color Yellow Urine Appearance Cloudy H (Clear) Urine pH 5.5 (5.0-8.0) Ur Specific [place] 1.024 (1.001-1.035) Urine Protein Trace H (Negative) Urine Glucose (UA) Negative (Negative) Urine Ketones Negative (Negative) Urine Blood Trace H (Negative) Urine Nitrite Negative (Negative) Urine Bilirubin Negative (Negative) Urine Urobilinogen <2.0 (<2.0) mg/dL Ur Leukocyte Esterase Large H (Negative) Urine RBC 6 H (0-5) /hpf Urine WBC 27 H (0-5) /hpf Ur Squamous Epith Cells 23 H (0-4) /hpf Urine Bacteria Occasional H (None) /hpf Urine Mucus Rare H (None) /hpf Urine HCG, Qual (Not Detectd) - EKG Data -: EKG Interpreted by Me EKG Comments: Ventricular rate 99, IL interval 132, QRS 82, QT/QTc 344/441. Sinus rhythm with occasional premature ventricular complex. No concern for acute ischemia. Disposition Clinical Impression: Dizziness Disposition: HOME SELF-CARE Condition: Stable Instructions (If sedation given, give patient instructions): Dizziness (ED) Additional Instructions: Patient to adhere to previously discussed treatment plan and will take medication(s) as directed. Patient to follow up with PCP in 1-2 days. Patient to return to ED if symptoms do not improve. Please follow-up with primary care provider in 1-2 days. Please begin taking increased dose of Synthroid. Please return to ED after condition worsens anywhere new signs or symptoms develop. Prescriptions: Levothyroxine Sodium [Synthroid] 50 mcg PO DAILY 14 Days #14 tab Is patient prescribed a controlled substance at d/c from ED?: No Referrals: Cathy Rivas MD [Primary Care Provider] - 1-2 days
[2018-09-14 20:25] VITALS: BP 143/85; PULSE 99; RESP 20; TEMP 97.7
== END 2018-09-14 20:26 | disposition home or self-care (01) ==
LOC: EC 16:09
DX: R42 Dizziness and giddiness (principal); R00.0 Tachycardia, unspecified; R94.6 Abnormal results of thyroid function studies; F32.9 Major depressive disorder, single episode, unspecified; Z87.891 Personal history of nicotine dependence; Z79.899 Other long term (current) drug therapy
CPT/HCPCS: 36415; 80053; 81001; 81025; 84439; 84443; 85025; 87086; 93005; 96360; 96361; 99284

== ENCOUNTER 2023-06-27 16:49 | Emergency (ER) | payer BC, OTHER ==
[2023-06-27] MEDS ORDERED: MECLIZINE 12.5 MG TAB PO STA (17:08)
[2023-06-27] MEDS ORDERED: ACETAMINOPHEN TAB 325 MG TAB PO STA (17:08)
--- NOTE | 2023-06-27 17:10 | ED ---
Weakness HPI - General Source: patient, family, RN notes reviewed Mode of arrival: ambulatory Limitations: no limitations <Maribel Kay - Last Filed: 06/27/23 20:02> <Kateryna Brown - Last Filed: 06/27/23 22:52> - General Chief complaint: Weakness Stated complaint: Light Headed,History of Vertigo Time Seen by Provider: 06/27/23 17:01 - History of Present Illness Initial comments: Patient is a 28-year-old female presenting to the ER with chief complaint of lightheaded/dizziness. Patient does have a past medical history significant for thyroid disorder and vertigo. Patient states since Friday, [id number] she has been having dizziness. Patient also reports headaches and a runny nose. Patient denies any chest pain, shortness of breath, abdominal pain, peripheral edema. 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 Patient denies any fevers, chills, night sweats. (Maribel Kay) - Related Data Home Medications Medication Instructions Recorded Confirmed buPROPion [Wellbutrin] 100 mg PO BID 09/14/18 09/14/18 Previous Rx's Medication Instructions Recorded Levothyroxine Sodium [Synthroid] 25 mcg PO DAILY@0630 #30 tab 09/25/17 Levothyroxine Sodium [Synthroid] 50 mcg PO DAILY 14 Days #14 tab 09/14/18 Meclizine [Antivert] 25 mg PO TID PRN #30 tab 06/27/23 metFORMIN HCL 500 mg PO BID #60 tablet 06/27/23 Allergies Allergy/AdvReac Type Severity Reaction Status Date / Time No Known Allergies Allergy Verified 06/27/23 16:55 Review of Systems ROS Other: All systems not noted in ROS Statement are negative. <Maribel Kay - Last Filed: 06/27/23 20:02> ROS Other: All systems not noted in ROS Statement are negative. <Kateryna Brown - Last Filed: 06/27/23 22:52> ROS Statement: Those systems with pertinent positive or pertinent negative responses have been documented in the HPI. Past Medical History Past Medical History: Thyroid Disorder Additional Past Medical History / Comment(s): in past took med for thyroid but taken off it 2012 History of Any Multi-Drug Resistant Organisms: None Reported Past Surgical History: No Surgical Hx Reported Past Anesthesia/Blood Transfusion Reactions: Motion Sickness Additional Past Anesthesia/Blood Transfusion Reaction / Comment(s): never had general aa Past Psychological History: Depression Smoking Status: Never smoker Past Alcohol Use History: None Reported Past Drug Use History: None Reported - Past Family History Father Family Medical History: Diabetes Mellitus Mother Family Medical History: CVA/TIA, Diabetes Mellitus Additional Family Medical History / Comment(s): depression <Maribel Kay - Last Filed: 06/27/23 20:02> General Exam Limitations: no limitations General appearance: alert, in no apparent distress Head exam: Present: atraumatic, normocephalic, normal inspection ENT exam: Present: normal exam, normal oropharynx, mucous membranes moist, TM's normal bilaterally Neck exam: Present: normal inspection. Absent: tenderness, meningismus, lymphadenopathy Respiratory exam: Present: normal lung sounds bilaterally. Absent: respiratory distress, wheezes, rales, rhonchi, stridor Cardiovascular Exam: Present: tachycardia, normal heart sounds GI/Abdominal exam: Present: soft, normal bowel sounds. Absent: distended, tende rness, guarding, rebound, rigid Extremities exam: Present: normal inspection, full ROM, normal capillary refill. Absent: tenderness, pedal edema, joint swelling, calf tenderness Neurological exam: Present: alert, oriented X3, CN II-XII intact Psychiatric exam: Present: normal affect, normal mood Skin exam: Present: warm, dry, intact, normal color. Absent: rash <Maribel Kay - Last Filed: 06/27/23 20:02> Course Vital Signs 06/27/23 06/27/23 16:51 21:18 Temperature 101.2 F H 99.3 F Pulse Rate 127 H 105 H Respiratory 20 20 Rate Blood Pressure 148/81 136/76 O2 Sat by Pulse 95 96 Oximetry Medical Decision Making - Lab Data Result diagrams: 06/27/23 17:15 06/27/23 17:15 <Maribel Kay - Last Filed: 06/27/23 20:02> - Lab Data Result diagrams: 06/27/23 17:15 06/27/23 17:15 - Radiology Data Radiology results: report reviewed, image reviewed <Kateryna Brown - Last Filed: 06/27/23 22:52> - Medical Decision Making Was pt. sent in by a medical professional or institution (, DUANE, LINDERMAN OPERATOR, urgent care, hospital, or correction...) When possible be specific @ -[No] Did you speak to anyone other than the patient for history (EMS, parent, family, police, friend...)? What history was obtained from this source @ -[Family] Did you review nursing and triage notes (agree or disagree)? Why? @ -[I reviewed and agree with nursing and triage notes] Were old charts reviewed (outside hosp., previous admission, EMS record, old EKG, old radiological studies, urgent care reports/EKG's, correction records)? Report findings @ -[No old charts were reviewed] Differential Diagnosis (chest pain, altered mental status, abdominal pain women, abdominal pain men, vaginal bleeding, weakness, fever, dyspnea, syncope, headache, dizziness, GI bleed, back pain, seizure, CVA, palpatations, mental health, musculoskeletal)? @ -[Differential Dizziness: Benign paroxysmal positional Vertigo, Menieres disease, otitis media, acoustic neuroma, vertebrobasilar insufficiency, cerebellar stroke, encephalitis, hypovolemic, arrhythmia, coronary artery syndrome, anemia, this is not meant to be an all-inclusive list] EKG interpreted by me (3pts min.). @ -[None] X-rays interpreted by me (1pt min.). @ -[None done] CT interpreted by me (1pt min.). @ -[None done] U/S interpreted by me (1pt. min.). @ -[None done] What testing was considered but not performed or refused? (CT, X-rays, U/S, labs)? Why? @ -[None] What meds were considered but not given or refused? Why? @ -[None] Did you discuss the management of the patient with other professionals (professionals i.e. , DUANE, LINDERMAN OPERATOR, lab, RT, psych nurse, social services assistant, feeder operator automatic, teacher, mounted police officer, case worker)? Give summary @ -[No] Was smoking cessation discussed for >3mins.? @ -[No] Was critical care preformed (if so, how long)? @ -[No] Were there social determinants of health that impacted care today? How? (Homelessness, low income, unemployed, alcoholism, drug addiction, transportation, low edu. Level, literacy, decrease access to med. care, nursing home, rehab)? @ -[No] Was there de-escalation of care discussed even if they declined (Discuss DNR or withdrawal of care, Hospice)? DNR status @ -[No] What co-morbidities impacted this encounter? (DM, HTN, Smoking, COPD, CAD, Cancer, CVA, ARF, Chemo, Hep., AIDS, mental health diagnosis, sleep apnea, morbid obesity)? @ -[Vertigo and thyroid disorder] Was patient admitted / discharged? Hospital course, mention meds given and route, prescriptions, significant lab abnormalities, going to OR and other pertinent info. @ -[Discharged. Patient is a 28-year-old female presented ER with chief complaint of weakness. Upon examination, patient had a temperature of 101.2 and was tachycardic at 127 BPM. Physical exam was unremarkable. Labs obtained in the ER showed glucose of 349 and a TSH of 10.2, free t4 was 0.85. Patient is not currently taking any medications. Patient did receive by mouth Antivert and Tylenol for symptom control in the ER, with improvement. Patient was signed out to Kateryna Brown PA-C pending UA and chest x-ray results. ] Undiagnosed new problem with uncertain prognosis? @ -[No] Drug Therapy requiring intensive monitoring for toxicity (Heparin, Nitro, Insulin, Cardizem)? @ -[No] Were any procedures done? @ -[No] Diagnosis/symptom? @ -[default] Acute, or Chronic, or Acute on Chronic? @ -[default] Uncomplicated (without systemic symptoms) or Complicated (systemic symptoms)? @ -[default] Side effects of treatment? @ -[No] Exacerbation, Progression, or Severe Exacerbation? @ -[No] Poses a threat to life or bodily function? How? (Chest pain, [place], NH, pneumonia, PE, COPD, DKA, ARF, appy, cholecystitis, CVA, Diverticulitis, Homicidal, Suicidal, threat to staff... and all critical care pts) @ -[No] (Maribel Kay) Case signed out to me by Maribel Kay PA-C, at shift completion. Urinalysis was fairly contaminated without obvious signs of infection. UA was sent for culture. Chest x-ray reveals no acute process. The fever may be related to a viral illness. I rechecked the patient's temperature and it was found to be 100.8F and she was given a dose of ibuprofen prior to discharge. She was given a prescription for metformin 500 mg twice daily for the new onset diabetes as well as a prescription for Antivert for any additional vertigo symptoms. Advised ibuprofen and Tylenol as needed for any additional fevers and making sure that she remains well-hydrated. She is also instructed to have close follow up with her primary care provider to recheck her thyroid and manage the diabetes. Return precautions reviewed in depth, the patient is instructed to return to the emergency department with any new, worsening, or concerning symptoms. Patient verbalized understanding. This case was discussed in detail with the attending ED physician, Dr. Jimenez. Presentation, findings, and treatment plan discussed in detail as well. (Kateryna Brown) - Lab Data Lab Results 06/27/23 06/27/23 06/27/23 Range/Units 17:15 17:15 17:15 WBC 4.8 (3.8-10.6) k/uL RBC 4.79 (3.80-5.40) m/uL Hgb 15.4 (11.4-16.0) gm/dL Hct 44.2 (34.0-46.0) % MCV 92.4 (80.0-100.0) fL MCH 32.2 (25.0-35.0) pg MCHC 34.8 (31.0-37.0) g/dL RDW 13.1 (11.5-15.5) % Plt Count 158 (150-450) k/uL MPV 8.4 Sodium 132 L (137-145) mmol/L Potassium 4.2 (3.5-5.1) mmol/L Chloride 94 L (98-107) mmol/L Carbon Dioxide 25 (22-30) mmol/L Anion Gap 13 mmol/L BUN 7 (7-17) mg/dL Creatinine 0.49 L (0.52-1.04) mg/dL Est GFR (CKD-EPI)AfAm >90 (>60 ml/min/1.73 sqM) Est GFR (CKD-EPI)NonAf >90 (>60 ml/min/1.73 sqM) Glucose 349 H (74-99) mg/dL Calcium 8.7 (8.4-10.2) mg/dL Total Bilirubin 1.6 H (0.2-1.3) mg/dL AST 78 H (14-36) U/L ALT 86 H (4-34) U/L Alkaline Phosphatase 108 (38-126) U/L Total Protein 7.8 (6.3-8.2) g/dL Albumin 4.3 (3.5-5.0) g/dL TSH 10.200 H (0.465-4.680) mIU/L Free T4 0.85 (0.78-2.19) ng/dL Urine Color Urine Appearance (Clear) Urine pH (5.0-8.0) Ur Specific Echo (1.001-1.035) Urine Protein (Negative) Urine Glucose (UA) (Negative) Urine Ketones (Negative) Urine Blood (Negative) Urine Nitrite (Negative) Urine Bilirubin (Negative) Urine Urobilinogen (<2.0) mg/dL Ur Leukocyte Esterase (Negative) Urine RBC (0-5) /hpf Urine WBC (0-5) /hpf Ur Squamous Epith Cells (0-4) /hpf Urine Bacteria (None) /hpf Urine Mucus (None) /hpf Influenza Type A (PCR) Not Detected (Not Detectd) Influenza Type B (PCR) Not Detected (Not Detectd) RSV (PCR) Not Detected (Not Detectd) SARS-CoV-2 (PCR) Not Detected (Not Detectd) 06/27/23 Range/Units 20:03 WBC (3.8-10.6) k/uL RBC (3.80-5.40) m/uL Hgb (11.4-16.0) gm/dL Hct (34.0-46.0) % MCV (80.0-100.0) fL MCH (25.0-35.0) pg MCHC (31.0-37.0) g/dL RDW (11.5-15.5) % Plt Count (150-450) k/uL MPV Sodium (137-145) mmol/L Potassium (3.5-5.1) mmol/L Chloride (98-107) mmol/L Carbon Dioxide (22-30) mmol/L Anion Gap mmol/L BUN (7-17) mg/dL Creatinine (0.52-1.04) mg/dL Est GFR (CKD-EPI)AfAm (>60 ml/min/1.73 sqM) Est GFR (CKD-EPI)NonAf (>60 ml/min/1.73 sqM) Glucose (74-99) mg/dL Calcium (8.4-10.2) mg/dL Total Bilirubin (0.2-1.3) mg/dL AST (14-36) U/L ALT (4-34) U/L Alkaline Phosphatase (38-126) U/L Total Protein (6.3-8.2) g/dL Albumin (3.5-5.0) g/dL TSH (0.465-4.680) mIU/L Free T4 (0.78-2.19) ng/dL Urine Color Light Brown Urine Appearance Turbid H (Clear) Urine pH 5.5 (5.0-8.0) Ur Specific Echo 1.036 H (1.001-1.035) Urine Protein 1+ H (Negative) Urine Glucose (UA) 3+ H (Negative) Urine Ketones Negative (Negative) Urine Blood Negative (Negative) Urine Nitrite Negative (Negative) Urine Bilirubin Negative (Negative) Urine Urobilinogen 2.0 (<2.0) mg/dL Ur Leukocyte Esterase Moderate H (Negative) Urine RBC 7 H (0-5) /hpf Urine WBC 17 H (0-5) /hpf Ur Squamous Epith Cells 15 H (0-4) /hpf Urine Bacteria Occasional H (None) /hpf Urine Mucus Many H (None) /hpf Influenza Type A (PCR) (Not Detectd) Influenza Type B (PCR) (Not Detectd) RSV (PCR) (Not Detectd) SARS-CoV-2 (PCR) (Not Detectd) Disposition <Maribel Kay - Last Filed: 06/27/23 20:02> Is patient prescribed a controlled substance at d/c from ED?: No <Kateryna Brown - Last Filed: 06/27/23 22:52> Clinical Impression: Hyperglycemia, Vertigo, Viral illness Disposition: HOME SELF-CARE Instructions (If sedation given, give patient instructions): Viral Syndrome (ED) Additional Instructions: Please return to the Emergency Department if symptoms worsen or any other concerns. Be aware that metformin may cause diarrhea. Please follow-up with PCP in the next 1-2 days. You can take the Antivert 3-4 times daily for the vertigo. Prescriptions: Meclizine [Antivert] 25 mg PO TID PRN #30 tab PRN Reason: Vertigo metFORMIN HCL 500 mg PO BID #60 tablet Referrals: None,Stated [Primary Care Provider] - 1-2 days Robert Mario MD [STAFF PHYSICIAN] - 1-2 days
[2023-06-27 17:12] VITALS: RESP 20
[2023-06-27 17:28] LABS: HCT 44.2 % (34.0-46.0); HGB 15.4 gm/dL (11.4-16.0); MCH 32.2 pg (25.0-35.0); MCHC 34.8 g/dL (31.0-37.0); MCV 92.4 fL (80.0-100.0); Mean Platelet Volume 8.4; Platelet Count 158 k/uL (150-450); RBC 4.79 m/uL (3.80-5.40); RDW 13.1 % (11.5-15.5); WBC 4.8 k/uL (3.8-10.6)
[2023-06-27 18:07] LABS: ALT 86 U/L (4-34); AST 78 U/L (14-36); African American GFR (CKD) >90 (>60 ml/min/1.73 sqM); Albumin 4.3 g/dL (3.5-5.0); Alkaline Phosphatase 108 U/L (38-126); Anion Gap 13 mmol/L; Blood Urea Nitrogen 7 mg/dL (7-17); Calcium 8.7 mg/dL (8.4-10.2); Carbon Dioxide 25 mmol/L (22-30); Chloride 94 mmol/L (98-107); Glucose 349 mg/dL (74-99); Non-African American GFR(CKD) >90 (>60 ml/min/1.73 sqM); Potassium 4.2 mmol/L (3.5-5.1); Sodium 132 mmol/L (137-145); Total Bilirubin 1.6 mg/dL (0.2-1.3); Total Protein 7.8 g/dL (6.3-8.2)
[2023-06-27] MEDS ORDERED: SODIUM CHLORIDE 0.9% 1,000 ML IV STA (19:10)
[2023-06-27 19:22] LABS: T4, Free (Free Thyroxine) 0.85 ng/dL (0.78-2.19)
[2023-06-27 20:19] LABS: Appearance,Urine Turbid (Clear); Bacteria,Urine Occasional /hpf; Bilirubin,Urine Negative (Negative); Blood,Urine Negative (Negative); Color,Urine Light Brown; Glucose,Urine (UA) 3+ (Negative); Ketones,Urine Negative (Negative); Leukocyte Esterase,Urine Moderate (Negative); Mucus,Urine Many /hpf; Nitrite,Urine Negative (Negative); PH, Urine 5.5 (5.0-8.0); Protein,Urine 1+ (Negative); RBC,Urine 7 /hpf (0-5); Specific Gravity,Urine 1.036 (1.001-1.035); Squamous Epithelial Cell,Urine 15 /hpf (0-4); WBC,Urine 17 /hpf (0-5)
--- NOTE | 2023-06-27 20:45 | XR ---
EXAMINATION TYPE: XR chest 2V DATE OF EXAM: 06/27/2023 8:23 PM CLINICAL INDICATION:Female, 28 years old with history of fever; [facility] COMPARISON: 09/23/2018 TECHNIQUE: XR chest 2V Frontal and lateral views of the chest. FINDINGS: Lungs/Pleura: There is no evidence of pleural effusion, focal consolidation, or pneumothorax. Pulmonary vascularity: Unremarkable. Heart/mediastinum: Cardiomediastinal silhouette is unremarkable. Musculoskeletal: No acute osseous pathology. Other findings: None IMPRESSION: No acute cardiopulmonary disease/process.
[2023-06-27] MEDS ORDERED: IBUPROFEN 800 MG TAB PO STA (20:57)
[2023-06-27 21:24] VITALS: BP 136/76; PULSE 105; TEMP 99.3
== END 2023-06-27 21:20 | disposition home or self-care (01) ==
LOC: EC 16:49
DX: R42 Dizziness and giddiness (principal); B34.9 Viral infection, unspecified; R73.9 Hyperglycemia, unspecified; F32.A Depression, unspecified; Z79.899 Other long term (current) drug therapy; Z20.822 Contact with and (suspected) exposure to COVID-19
CPT/HCPCS: 36415; 71046; 80053; 81001; 84439; 84443; 85027; 87086; 87636; 96360; 99285

== ENCOUNTER 2024-05-17 01:54 | Emergency (ER) | payer OTHER ==
--- NOTE | 2024-05-17 02:24 | ED ---
Abdominal Pain HPI - General Chief Complaint: Abdominal Pain Stated Complaint: Abd pain Time Seen by Provider: 05/17/24 02:10 Source: patient, RN notes reviewed Mode of arrival: ambulatory Limitations: no limitations - History of Present Illness Initial Comments: 8-year-old female no significant past medical history presenting to the emergency department with her for chief complaint of back/abdominal pain and urinary symptoms. Patient states that over the past approximately 2 days she has been having dysuria, increase in urinary frequency with decrease in output and suprapubic tenderness. She denies diarrhea, constipation, hematuria, fevers, chills, nausea, vomiting. Denies previous surgical abdominal history. States that she has also had a increase in vaginal discharge that is mildly odorous. - Related Data Home Medications Medication Instructions Recorded Confirmed buPROPion [Wellbutrin] 100 mg PO BID 09/14/18 09/14/18 Previous Rx's Medication Instructions Recorded Levothyroxine Sodium [Synthroid] 25 mcg PO DAILY@0630 #30 tab 09/25/17 Levothyroxine Sodium [Synthroid] 50 mcg PO DAILY 14 Days #14 tab 09/14/18 Meclizine [Antivert] 25 mg PO TID PRN #30 tab 06/27/23 metFORMIN HCL 500 mg PO BID #60 tablet 06/27/23 Acyclovir [Zovirax] 800 mg PO TID #30 tab 05/17/24 Doxycycline [Vibramycin] 100 mg PO BID #13 capsule 05/17/24 metFORMIN HCL [Glucophage] 500 mg PO BID #42 tab 05/17/24 metroNIDAZOLE [Flagyl] 500 mg PO BID #13 tab 05/17/24 Allergies Allergy/AdvReac Type Severity Reaction Status Date / Time phenazopyridine [From Azo] Allergy Itching Verified 05/17/24 02:06 Review of Systems ROS Statement: Those systems with pertinent positive or pertinent negative responses have been documented in the HPI. ROS Other: All systems not noted in ROS Statement are negative. Past Medical History Past Medical History: Thyroid Disorder Additional Past Medical History / Comment(s): in past took med for thyroid but taken off it 2012 History of Any Multi-Drug Resistant Organisms: None Reported Past Surgical History: No Surgical Hx Reported Past Anesthesia/Blood Transfusion Reactions: Motion Sickness Additional Past Anesthesia/Blood Transfusion Reaction / Comment(s): never had general aa Past Psychological History: Depression Smoking Status: Never smoker Past Alcohol Use History: None Reported Past Drug Use History: None Reported - Past Family History Father Family Medical History: Diabetes Mellitus Mother Family Medical History: CVA/TIA, Diabetes Mellitus Additional Family Medical History / Comment(s): depression General Exam Limitations: no limitations General appearance: alert, in no apparent distress, obese Eye exam: Present: normal appearance, PERRL, EOMI. Absent: scleral icterus, conjunctival injection, periorbital swelling Neck exam: Present: normal inspection. Absent: tenderness, meningismus, lymphadenopathy Respiratory exam: Present: normal lung sounds bilaterally. Absent: respiratory distress, wheezes, rales, rhonchi, stridor Cardiovascular Exam: Present: regular rate, normal rhythm, normal heart sounds. Absent: systolic murmur, diastolic murmur, rubs, gallop, clicks GI/Abdominal exam: Present: soft, tenderness (pelvic), normal bowel sounds. Absent: distended, guarding, rebound, rigid External exam: Present: lesions (ulcerations of the labia majora). Absent: normal external exam Speculum exam: Absent: cervical discharge By manual exam: Absent: cervical motion tenderness Extremities exam: Present: normal inspection, full ROM, normal capillary refill. Absent: tenderness, pedal edema, joint swelling, calf tenderness Back exam: Present: normal inspection Skin exam: Present: warm, dry, intact, normal color. Absent: rash Course Vital Signs 05/17/24 05/17/24 02:01 03:40 Temperature 98.3 F 98.2 F Pulse Rate 125 H 85 Respiratory 20 16 Rate Blood Pressure 162/95 131/79 O2 Sat by Pulse 97 Oximetry Medical Decision Making - Medical Decision Making Was pt. sent in by a medical professional or institution (, PA, HEAVY EQUIPMENT PLUMBING SUPERVISOR, urgent care, hospital, or assisted...) When possible be specific @ -No Did you speak to anyone other than the patient for history (EMS, parent, family, police, friend...)? What history was obtained from this source @ -No Did you review nursing and triage notes (agree or disagree)? Why? @ -I reviewed and agree with nursing and triage notes Were old charts reviewed (outside hosp., previous admission, EMS record, old EKG, old radiological studies, urgent care reports/EKG's, assisted records)? Report findings @ -No old charts were reviewed Differential Diagnosis (chest pain, altered mental status, abdominal pain women, abdominal pain men, vaginal bleeding, weakness, fever, dyspnea, syncope, headache, dizziness, GI bleed, back pain, seizure, CVA, palpatations, mental health, musculoskeletal)? @ -Differential Abdominal Pain Women: Appendicitis, Cholecystitis, diverticulosis, ischemic bowel, pancreatitis, hepatitis, UTI, gastroenteritis, AAA, incarcerated hernia, bowel obstruction, constipation, inflammatory bowel, hepatitis, peptic ulcer disease, splenic infarction, perforated viscus, vulvitis, ovarian torsion, PID, kidney stone, placenta abruption, this is not meant to be an all-inclusive list EKG interpreted by me (3pts min.). @ -None X-rays interpreted by me (1pt min.). @ -None done CT interpreted by me (1pt min.). @ -None done U/S interpreted by me (1pt. min.). @ -None done What testing was considered but not performed or refused? (CT, X-rays, U/S, labs)? Why? @ -None What meds were considered but not given or refused? Why? @ -None Did you discuss the management of the patient with other professionals (professionals i.e. , PA, HEAVY EQUIPMENT PLUMBING SUPERVISOR, lab, RT, psych nurse, sexual assault social worker, charter driver, teacher, agricultural loan officer, manager of case management)? Give summary @ -No Was smoking cessation discussed for >3mins.? @ -No Was critical care preformed (if so, how long)? @ -No Were there social determinants of health that impacted care today? How? (Homelessness, low income, unemployed, alcoholism, drug addiction, transportation, low edu. Level, literacy, decrease access to med. care, half-way, rehab)? @ -No Was there de-escalation of care discussed even if they declined (Discuss DNR or withdrawal of care, Hospice)? DNR status @ -No What co-morbidities impacted this encounter? (DM, HTN, Smoking, COPD, CAD, Cancer, CVA, ARF, Chemo, Hep., AIDS, mental health diagnosis, sleep apnea, morbid obesity)? @ -None Was patient admitted / discharged? Hospital course, mention meds given and route, prescriptions, significant lab abnormalities, going to OR and other pertinent info. @ -Discharge. 28-year-old female with urinary complaints and suprapubic tenderness. On my evaluation the patient she is laying in the examination bed. Vitals are stable. She is noted to have mild suprapubic tenderness to palpation. 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 There is no cervical motion tenderness or cervical discharge. CBC reveals leukocytosis of 14.0, elevated neutrophils at 10.9, per glycemia of 389 urinalysis remarkable for infection including leukocyte esterase, white blood cells and white blood cell clumps, hCG negative. Patient's urine also remarkable for 4+ glucose. Discussed with patient at bedside results of today's workup. Patient states that she would like to also be prophylactically treated for chlamydia and gonorrhea. Patient is provided with antibiotics emergency department and sent course of antivirals antibiotics to cover for infection. Additionally, discussed with patient at bedside elevated glucose level and she is started on a low-dose of metformin instructed to establish care/follow-up with a primary care provider for further evaluation. Additionally she is provided with information in regard to a low glucose/carbohydrate diet. Discussed with Dr. Martinez Undiagnosed new problem with uncertain prognosis? @ -No Drug Therapy requiring intensive monitoring for toxicity (Heparin, Nitro, Ins ulin, Cardizem)? @ -No Were any procedures done? @ -No Diagnosis/symptom? @ -HSV-2, urinary tract infection Acute, or Chronic, or Acute on Chronic? @ -Acute Uncomplicated (without systemic symptoms) or Complicated (systemic symptoms)? @ -Uncomplicated Side effects of treatment? @ -No Exacerbation, Progression, or Severe Exacerbation? @ -No Poses a threat to life or bodily function? How? (Chest pain, USA, IA, pneumonia, PE, COPD, DKA, ARF, appy, cholecystitis, CVA, Diverticulitis, Homicidal, Suic idal, threat to staff... and all critical care pts) @ -No - Lab Data Result diagrams: 05/17/24 02:35 05/17/24 02:35 Lab Results 05/17/24 05/17/24 05/17/24 Range/Units 02:25 02:25 02:25 WBC (3.8-10.6) k/uL RBC (3.80-5.40) m/uL Hgb (11.4-16.0) gm/dL Hct (34.0-46.0) % MCV (80.0-100.0) fL MCH (25.0-35.0) pg MCHC (31.0-37.0) g/dL RDW (11.5-15.5) % Plt Count (150-450) k/uL MPV Neutrophils % % Lymphocytes % % Monocytes % % Eosinophils % % Basophils % % Neutrophils # (1.3-7.7) k/uL Lymphocytes # (1.0-4.8) k/uL Monocytes # (0-1.0) k/uL Eosinophils # (0-0.7) k/uL Basophils # (0-0.2) k/uL Sodium (137-145) mmol/L Potassium (3.5-5.1) mmol/L Chloride (98-107) mmol/L Carbon Dioxide (22-30) mmol/L Anion Gap mmol/L BUN (7-17) mg/dL Creatinine (0.52-1.04) mg/dL Est GFR (CKD-EPI)AfAm (>60 ml/min/1.73 sqM) Est GFR (CKD-EPI)NonAf (>60 ml/min/1.73 sqM) Glucose (74-99) mg/dL Calcium (8.4-10.2) mg/dL Total Bilirubin (0.2-1.3) mg/dL AST (14-36) U/L ALT (4-34) U/L Alkaline Phosphatase (38-126) U/L Total Protein (6.3-8.2) g/dL Albumin (3.5-5.0) g/dL Amylase (30-110) U/L Lipase (23-300) U/L Urine Color Colorless Urine Appearance Clear (Clear) Urine pH 5.0 (5.0-8.0) Ur Specific [place] 1.029 (1.001-1.035) Urine Protein Negative (Negative) Urine Glucose (UA) 4+ H (Negative) Urine Ketones Negative (Negative) Urine Blood Trace H (Negative) Urine Nitrite Negative (Negative) Urine Bilirubin Negative (Negative) Urine Urobilinogen <2.0 (<2.0) mg/dL Ur Leukocyte Esterase Moderate H (Negative) Urine RBC 20 H (0-5) /hpf Urine WBC 29 H (0-5) /hpf Urine WBC Clumps Rare H (None) /hpf Ur Squamous Epith Cells 2 (0-4) /hpf Urine Bacteria Rare H (None) /hpf Urine Mucus Rare H (None) /hpf Urine Yeast (Budding) Rare H (None) /hpf Urine HCG, Qual Not Detected (Not Detectd) Chlamydia DNA (PCR) Negative (Negative) N.gonorrhoeae DNA Probe Negative (Negative) 05/17/24 05/17/24 Range/Units 02:35 02:35 WBC 14.0 H (3.8-10.6) k/uL RBC 4.97 (3.80-5.40) m/uL Hgb 15.8 (11.4-16.0) gm/dL Hct 47.1 H (34.0-46.0) % MCV 94.8 (80.0-100.0) fL MCH 31.9 (25.0-35.0) pg MCHC 33.6 (31.0-37.0) g/dL RDW 12.8 (11.5-15.5) % Plt Count 219 (150-450) k/uL MPV 7.3 Neutrophils % 78 % Lymphocytes % 16 % Monocytes % 4 % Eosinophils % 0 % Basophils % 0 % Neutrophils # 10.9 H (1.3-7.7) k/uL Lymphocytes # 2.3 (1.0-4.8) k/uL Monocytes # 0.5 (0-1.0) k/uL Eosinophils # 0.1 (0-0.7) k/uL Basophils # 0.1 (0-0.2) k/uL Sodium 136 L (137-145) mmol/L Potassium 3.9 (3.5-5.1) mmol/L Chloride 103 (98-107) mmol/L Carbon Dioxide 25 (22-30) mmol/L Anion Gap 8 mmol/L BUN 13 (7-17) mg/dL Creatinine 0.96 (0.52-1.04) mg/dL Est GFR (CKD-EPI)AfAm >90 (>60 ml/min/1.73 sqM) Est GFR (CKD-EPI)NonAf 80 (>60 ml/min/1.73 sqM) Glucose 389 H (74-99) mg/dL Calcium 8.8 (8.4-10.2) mg/dL Total Bilirubin 0.8 (0.2-1.3) mg/dL AST 23 (14-36) U/L ALT 25 (4-34) U/L Alkaline Phosphatase 94 (38-126) U/L Total Protein 7.8 (6.3-8.2) g/dL Albumin 4.4 (3.5-5.0) g/dL Amylase 33 (30-110) U/L Lipase 101 (23-300) U/L Urine Color Urine Appearance (Clear) Urine pH (5.0-8.0) Ur Specific [place] (1.001-1.035) Urine Protein (Negative) Urine Glucose (UA) (Negative) Urine Ketones (Negative) Urine Blood (Negative) Urine Nitrite (Negative) Urine Bilirubin (Negative) Urine Urobilinogen (<2.0) mg/dL Ur Leukocyte Esterase (Negative) Urine RBC (0-5) /hpf Urine WBC (0-5) /hpf Urine WBC Clumps (None) /hpf Ur Squamous Epith Cells (0-4) /hpf Urine Bacteria (None) /hpf Urine Mucus (None) /hpf Urine Yeast (Budding) (None) /hpf Urine HCG, Qual (Not Detectd) Chlamydia DNA (PCR) (Negative) N.gonorrhoeae DNA Probe (Negative) Disposition Clinical Impression: Hyperglycemia, UTI (urinary tract infection), HSV-2 (herpes simplex virus 2) infection Disposition: HOME SELF-CARE Condition: Poor Instructions (If sedation given, give patient instructions): Genital Herpes Simplex (ED), Urinary Tract Infection in Women (ED), Basic Carbohydrate Counting (DC) Additional Instructions: Please return to the Emergency Department if symptoms worsen or any other concerns. Complete full course of antibiotics and antiviral as prescribed. Recommend that you continue to monitor your carbohydrate intake and establish care with a primary care provider for further evaluation of elevated blood sugar. Prescriptions: metroNIDAZOLE [Flagyl] 500 mg PO BID #13 tab metFORMIN HCL [Glucophage] 500 mg PO BID #42 tab Doxycycline [Vibramycin] 100 mg PO BID #13 capsule Acyclovir [Zovirax] 800 mg PO TID #30 tab Is patient prescribed a controlled substance at d/c from ED?: No Referrals: None,Stated [Primary Care Provider] - 1-2 days Time of Disposition: 03:29
[2024-05-17] MEDS: MORPHINE SULFATE 2 MG/ML SYRINGE IVP ONE (02:39)
[2024-05-17 02:52] LABS: Basophils # (A) 0.1 k/uL (0-0.2); Basophils % (A) 0 %; Eosinophils # (A) 0.1 k/uL (0-0.7); Eosinophils % (A) 0 %; HCT 47.1 % (34.0-46.0); HGB 15.8 gm/dL (11.4-16.0); Lymphocytes # (A) 2.3 k/uL (1.0-4.8); Lymphocytes % (A) 16 %; MCH 31.9 pg (25.0-35.0); MCHC 33.6 g/dL (31.0-37.0); MCV 94.8 fL (80.0-100.0); Mean Platelet Volume 7.3; Monocytes # (A) 0.5 k/uL (0-1.0); Monocytes % (A) 4 %; Neutrophils # (A) 10.9 k/uL (1.3-7.7); Neutrophils % (A) 78 %; Platelet Count 219 k/uL (150-450); RBC 4.97 m/uL (3.80-5.40); RDW 12.8 % (11.5-15.5)
[2024-05-17 02:56] LABS: Appearance,Urine Clear (Clear); Bacteria,Urine Rare /hpf; Bilirubin,Urine Negative (Negative); Blood,Urine Trace (Negative); Budding Yeast,Urine Rare /hpf; Color,Urine Colorless; Glucose,Urine (UA) 4+ (Negative); Ketones,Urine Negative (Negative); Leukocyte Esterase,Urine Moderate (Negative); Mucus,Urine Rare /hpf; Nitrite,Urine Negative (Negative); Protein,Urine Negative (Negative); RBC,Urine 20 /hpf (0-5); Specific Gravity,Urine 1.029 (1.001-1.035); Squamous Epithelial Cell,Urine 2 /hpf (0-4); Urobilinogen,Urine <2.0 mg/dL (<2.0); WBC,Urine 29 /hpf (0-5)
[2024-05-17 03:06] LABS: ALT 25 U/L (4-34); AST 23 U/L (14-36); African American GFR (CKD) >90 (>60 ml/min/1.73 sqM); Albumin 4.4 g/dL (3.5-5.0); Alkaline Phosphatase 94 U/L (38-126); Amylase 33 U/L (30-110); Anion Gap 8 mmol/L; Blood Urea Nitrogen 13 mg/dL (7-17); Calcium 8.8 mg/dL (8.4-10.2); Carbon Dioxide 25 mmol/L (22-30); Chloride 103 mmol/L (98-107); Glucose 389 mg/dL (74-99); Lipase 101 U/L (23-300); Non-African American GFR(CKD) 80 (>60 ml/min/1.73 sqM); Potassium 3.9 mmol/L (3.5-5.1); Sodium 136 mmol/L (137-145); Total Bilirubin 0.8 mg/dL (0.2-1.3); Total Protein 7.8 g/dL (6.3-8.2)
[2024-05-17] MEDS ORDERED: AZITHROMYCIN 500 MG TAB PO STA (03:23)
[2024-05-17 03:42] VITALS: BP 131/79; PULSE 85; RESP 16; TEMP 98.2
[2024-05-17] MEDS: cefTRIAXone IN SWFI 1,000 MG/10 ML SYRINGE IVP STA (03:42)
[2024-05-17] MEDS: metroNIDAZOLE 500 MG TAB PO STA (03:42)
[2024-05-17] MEDS: DOXYCYCLINE 100 MG CAP PO STA (03:42)
[2024-05-18 14:11] LABS: C. trachomatis,PCR Negative (Negative)
[2024-05-18 15:26] LABS: N. gonorrhoeae,PCR Negative (Negative)
== END 2024-05-17 03:45 | disposition home or self-care (01) ==
LOC: EC 01:54
DX: R73.9 Hyperglycemia, unspecified (principal); N39.0 Urinary tract infection, site not specified; B00.9 Herpesviral infection, unspecified; Z88.8 Allergy status to other drugs, medicaments and biological substances
CPT/HCPCS: 36415; 80053; 82150; 83690; 85025; 81001; 81025; 87491; 87591; 87086; 99284; 96374; 96375; J0696; J2270

== ENCOUNTER 2024-09-19 17:02 | Emergency (ER) | payer BC, OTHER ==
[2024-09-19 17:09] VITALS: BP 153/88; PULSE 115; RESP 18; TEMP 98.1
--- NOTE | 2024-09-19 17:12 | ED ---
Nausea/Vomiting/Diarrhea HPI - General Source: patient, RN notes reviewed Mode of arrival: ambulatory Limitations: no limitations <Shane Kay - Last Filed: 09/19/24 17:11> - General Source: patient, RN notes reviewed Mode of arrival: ambulatory Limitations: no limitations - History of Present Illness MD complaint: nausea, vomiting Onset/Timin -: days(s) <Venu Tovar - Last Filed: 09/19/24 20:29> - General Chief complaint: Nausea/Vomiting/Diarrhea Stated complaint: nausea Time Seen by Provider: 09/19/24 17:11 - History of Present Illness Initial comments: Quick note: 29-year-old female presented the ER for evaluation of nausea. She states she typically feels nauseous when she has a UTI. She believes she has another UTI and also a yeast infection. No abdominal pain she also reports a yellow discharge. No fevers. (Shane Kay) - Related Data Home Medications Medication Instructions Recorded Confirmed buPROPion [Wellbutrin] 100 mg PO BID 09/14/18 09/14/18 Previous Rx's Medication Instructions Recorded Levothyroxine Sodium [Synthroid] 25 mcg PO DAILY@0630 #30 tab 09/25/17 Levothyroxine Sodium [Synthroid] 50 mcg PO DAILY 14 Days #14 tab 09/14/18 Meclizine [Antivert] 25 mg PO TID PRN #30 tab 06/27/23 metFORMIN HCL 500 mg PO BID #60 tablet 06/27/23 Acyclovir [Zovirax] 800 mg PO TID #30 tab 05/17/24 Doxycycline [Vibramycin] 100 mg PO BID #13 capsule 05/17/24 metFORMIN HCL [Glucophage] 500 mg PO BID #42 tab 05/17/24 metroNIDAZOLE [Flagyl] 500 mg PO BID #13 tab 05/17/24 Fluconazole 150 mg PO DIRECTED PRN #2 tab 09/19/24 Nitrofurantoin Monohyd/M-Cryst 100 mg PO Q12HR #10 cap 09/19/24 [Macrobid] Allergies Allergy/AdvReac Type Severity Reaction Status Date / Time phenazopyridine [From Azo] Allergy Itching Verified 05/17/24 02:06 Review of Systems ROS Other: All systems not noted in ROS Statement are negative. <Shane Kay - Last Filed: 09/19/24 17:11> ROS Other: All systems not noted in ROS Statement are negative. <Venu Tovar - Last Filed: 09/19/24 20:29> ROS Statement: Those systems with pertinent positive or pertinent negative responses have been documented in the HPI. Past Medical History Past Medical History: Thyroid Disorder Additional Past Medical History / Comment(s): in past took med for thyroid but taken off it 2012 History of Any Multi-Drug Resistant Organisms: None Reported Past Surgical History: No Surgical Hx Reported Past Anesthesia/Blood Transfusion Reactions: Motion Sickness Additional Past Anesthesia/Blood Transfusion Reaction / Comment(s): never had general aa Past Psychological History: Depression Smoking Status: Never smoker Past Alcohol Use History: None Reported Past Drug Use History: None Reported - Past Family History Father Family Medical History: Diabetes Mellitus Mother Family Medical History: CVA/TIA, Diabetes Mellitus Additional Family Medical History / Comment(s): depression <Shane Kay - Last Filed: 09/19/24 17:11> General Exam Limitations: no limitations <Shane Kay - Last Filed: 09/19/24 17:11> - General Exam Comments Initial Comments: Visual Physical Exam Vital signs reviewed General: Well-appearing, nontoxic, no acute distress. Head: Normocephalic, atraumatic Eyes: PERRLA, EOMI ENT: Airway patent Chest: Nonlabored breathing Skin: No visual rash, normal skin tone Neuro: Alert and oriented 3 Musculoskeletal: No gross abnormalities (Shane Kay) Course Vital Signs 09/19/24 17:06 Temperature 98.1 F Pulse Rate 115 H Respiratory 18 Rate Blood Pressure 153/88 O2 Sat by Pulse 94 L Oximetry Medical Decision Making <Shane Kay - Last Filed: 09/19/24 17:11> - Medical Decision Making I performed the quick note portion of this chart. Electronically signed by Shane Kay PA-C (Shane Kay) - Lab Data Lab Results 09/19/24 09/19/24 Range/Units 18:26 18:26 Urine Color Colorless Urine Appearance Clear (Clear) Urine pH 5.0 (5.0-8.0) Ur Specific [place] 1.033 (1.001-1.035) Urine Protein Negative (Negative) Urine Glucose (UA) 4+ H (Negative) Urine Ketones Negative (Negative) Urine Blood Negative (Negative) Urine Nitrite Negative (Negative) Urine Bilirubin Negative (Negative) Urine Urobilinogen <2.0 (<2.0) mg/dL Ur Leukocyte Esterase Large H (Negative) Urine RBC 6 H (0-5) /hpf Urine WBC 25 H (0-5) /hpf Ur Squamous Epith Cells 3 (0-4) /hpf Urine Bacteria Rare H (None) /hpf Granular Casts 1 (0) /lpf Urine Mucus Rare H (None) /hpf Urine Yeast (Budding) Rare H (None) /hpf Urine HCG, Qual Not Detected (Not Detectd) Disposition <Shane Kay - Last Filed: 09/19/24 17:11> Is patient prescribed a controlled substance at d/c from ED?: No Time of Disposition: 20:11 <Venu Tovar - Last Filed: 09/19/24 20:29> Clinical Impression: Vulvovaginal candidiasis, UTI (urinary tract infection) Disposition: HOME SELF-CARE Condition: Good Instructions (If sedation given, give patient instructions): Yeast Infection (ED), Acute Nausea and Vomiting (ED) Prescriptions: Fluconazole 150 mg PO DIRECTED PRN #2 tab PRN Reason: Itching Nitrofurantoin Monohyd/M-Cryst [Macrobid] 100 mg PO Q12HR #10 cap Referrals: None,Stated [Primary Care Provider] - 1-2 days Gena Funes DO [Doctor of Osteopathic Medicine] - 1-2 days
[2024-09-19] MEDS: FLUCONAZOLE 150 MG TAB PO STA (19:12)
[2024-09-19 20:01] LABS: Appearance,Urine Clear (Clear); Bacteria,Urine Rare /hpf; Bilirubin,Urine Negative (Negative); Blood,Urine Negative (Negative); Budding Yeast,Urine Rare /hpf; Color,Urine Colorless; Glucose,Urine (UA) 4+ (Negative); Granular Casts,Urine 1 /lpf (0); Ketones,Urine Negative (Negative); Leukocyte Esterase,Urine Large (Negative); Mucus,Urine Rare /hpf; Nitrite,Urine Negative (Negative); Protein,Urine Negative (Negative); RBC,Urine 6 /hpf (0-5); Specific Gravity,Urine 1.033 (1.001-1.035); Squamous Epithelial Cell,Urine 3 /hpf (0-4); Urobilinogen,Urine <2.0 mg/dL (<2.0); WBC,Urine 25 /hpf (0-5)
[2024-09-20 13:56] LABS: N. gonorrhoeae,PCR Negative (Negative)
[2024-09-20 13:59] LABS: C. trachomatis,PCR Negative (Negative)
== END 2024-09-19 20:15 | disposition home or self-care (01) ==
LOC: EC 17:02
DX: N39.0 Urinary tract infection, site not specified (principal); B37.31 Acute candidiasis of vulva and vagina; B95.1 Streptococcus, group B, as the cause of diseases classified elsewhere; Z88.6 Allergy status to analgesic agent
CPT/HCPCS: 81001; 81025; 87086; 87491; 87591; 99284

== ENCOUNTER 2024-11-04 11:52 | Emergency (ER) | payer BC, OTHER ==
--- NOTE | 2024-11-04 12:09 | ED ---
General Adult HPI - General Chief complaint: Dizziness Stated complaint: Dizziness, Weakness Time Seen by Provider: 11/04/24 12:04 Source: patient, RN notes reviewed Mode of arrival: ambulatory Limitations: no limitations - History of Present Illness Initial comments: This is a 29-year-old female with history of vertigo and underactive thyroid not on medications who is presenting to the emergency department for complaint of intermittent dizziness, nausea and generalized not feeling well. States that she has felt fatigued and increasing tiredness. States that she will feel intermittently dizzy described as a room with positional change when she changes positions quickly. Denies fevers, chills, cough, rhinorrhea, congestion, abdominal pain, diarrhea constipation. - Related Data Home Medications Medication Instructions Recorded Confirmed buPROPion [Wellbutrin] 100 mg PO BID 09/14/18 09/14/18 Previous Rx's Medication Instructions Recorded Levothyroxine Sodium [Synthroid] 25 mcg PO DAILY@0630 #30 tab 09/25/17 Levothyroxine Sodium [Synthroid] 50 mcg PO DAILY 14 Days #14 tab 09/14/18 Meclizine [Antivert] 25 mg PO TID PRN #30 tab 06/27/23 metFORMIN HCL 500 mg PO BID #60 tablet 06/27/23 Acyclovir [Zovirax] 800 mg PO TID #30 tab 05/17/24 Doxycycline [Vibramycin] 100 mg PO BID #13 capsule 05/17/24 metFORMIN HCL [Glucophage] 500 mg PO BID #42 tab 05/17/24 metroNIDAZOLE [Flagyl] 500 mg PO BID #13 tab 05/17/24 Fluconazole 150 mg PO DIRECTED PRN #2 tab 09/19/24 Nitrofurantoin Monohyd/M-Cryst 100 mg PO Q12HR #10 cap 09/19/24 [Macrobid] Allergies Allergy/AdvReac Type Severity Reaction Status Date / Time phenazopyridine [From Azo] Allergy Itching Verified 11/04/24 11:57 Review of Systems ROS Statement: Those systems with pertinent positive or pertinent negative responses have been documented in the HPI. ROS Other: All systems not noted in ROS Statement are negative. Past Medical History Past Medical History: Thyroid Disorder Additional Past Medical History / Comment(s): in past took med for thyroid but taken off it 2012 History of Any Multi-Drug Resistant Organisms: None Reported Past Surgical History: No Surgical Hx Reported Past Anesthesia/Blood Transfusion Reactions: Motion Sickness Additional Past Anesthesia/Blood Transfusion Reaction / Comment(s): never had general aa Past Psychological History: Depression Smoking Status: Current some day smoker, Vaper Past Alcohol Use History: Rare Past Drug Use History: Marijuana - Past Family History Father Family Medical History: Diabetes Mellitus Mother Family Medical History: CVA/TIA, Diabetes Mellitus Additional Family Medical History / Comment(s): depression General Exam Limitations: no limitations General appearance: alert, in no apparent distress Eye exam: Present: normal appearance, PERRL, EOMI. Absent: scleral icterus, conjunctival injection, periorbital swelling Neck exam: Present: normal inspection. Absent: tenderness, meningismus, lymphadenopathy Respiratory exam: Present: normal lung sounds bilaterally. Absent: respiratory distress, wheezes, rales, rhonchi, stridor Cardiovascular Exam: Present: regular rate, normal rhythm, normal heart sounds. Absent: systolic murmur, diastolic murmur, rubs, gallop, clicks GI/Abdominal exam: Present: soft, normal bowel sounds. Absent: distended, tenderness, guarding, rebound, rigid Extremities exam: Present: normal inspection, full ROM, normal capillary refill. Absent: tenderness, pedal edema, joint swelling, calf tenderness Back exam: Present: normal inspection Neurological exam: Present: alert, oriented X3, CN II-XII intact Skin exam: Present: warm, dry, intact, normal color. Absent: rash Course Vital Signs 11/04/24 11/04/24 11/04/24 11:53 13:20 14:47 Temperature 97.5 F L 97.8 F 97.8 F Pulse Rate 101 H 99 89 Respiratory 20 18 18 Rate Blood Pressure 176/106 148/99 126/78 O2 Sat by Pulse 99 97 98 Oximetry Medical Decision Making - Medical Decision Making Was pt. sent in by a medical professional or institution (, PA, INSTITUTIONAL NUTRITION CONSULTANT, urgent care, hospital, or assisted...) When possible be specific @ -No Did you speak to anyone other than the patient for history (EMS, parent, family, police, friend...)? What history was obtained from this source @ -No Did you review nursing and triage notes (agree or disagree)? Why? @ -I reviewed and agree with nursing and triage notes Were old charts reviewed (outside hosp., previous admission, EMS record, old EKG, old radiological studies, urgent care reports/EKG's, assisted records)? Report findings @ -No old charts were reviewed Differential Diagnosis (chest pain, altered mental status, abdominal pain women, abdominal pain men, vaginal bleeding, weakness, fever, dyspnea, syncope, headache, dizziness, GI bleed, back pain, seizure, CVA, palpatations, mental health, musculoskeletal)? @ -Differential Dizziness: Benign paroxysmal positional Vertigo, Meniere's disease, otitis media, acoustic neuroma, vertebrobasilar insufficiency, cerebellar stroke, encephalitis, hypovolemic, arrhythmia, coronary artery syndrome, anemia, this is not meant to be an all-inclusive list EKG interpreted by me (3pts min.). @ -Completed at 1257 sinus rhythm with a ventricular of 96, CA interval 156, QRS 95, QTc 427. X-rays interpreted by me (1pt min.). @ -None done CT interpreted by me (1pt min.). @ -None done U/S interpreted by me (1pt. min.). @ -None done What testing was considered but not performed or refused? (CT, X-rays, U/S, labs)? Why? @ -Patient refused laboratory testing seen that she does not want to complete a blood draw. What meds were considered but not given or refused? Why? @ -None Did you discuss the management of the patient with other professionals (professionals i.e. , PA, INSTITUTIONAL NUTRITION CONSULTANT, lab, RT, psych nurse, director social welfare, gas utility worker, teacher, special forces officer, senior case manager)? Give summary @ -No Was smoking cessation discussed for >3mins.? @ -No Was critical care preformed (if so, how long)? @ -No Were there social determinants of health that impacted care today? How? (Homelessness, low income, unemployed, alcoholism, drug addiction, transportation, low edu. Level, literacy, decrease access to med. care, penitentiary, rehab)? @ -No Was there de-escalation of care discussed even if they declined (Discuss DNR or withdrawal of care, Hospice)? DNR status @ -No What co-morbidities impacted this encounter? (DM, HTN, Smoking, COPD, CAD, Cancer, CVA, ARF, Chemo, Hep., AIDS, mental health diagnosis, sleep apnea, morbid obesity)? @ -None Was patient admitted / discharged? Hospital course, mention meds given and route, prescriptions, significant lab abnormalities, going to OR and other pertinent info. @ -Discharge. 29-year-old female presents emergency department with general complaints of not feeling well and overall weakness. Offered and encouraged to check laboratory testing however patient has declined blood draw. She is ready with Tylenol and meclizine. Urinalysis reveals 4+ glucose, hCG is negative. Viral testing is negative. Patient is informed of results instructed follow-up with primary care provider in regard to glucose within urine. Patient states that she is feeling well after medications and is requesting a work note. Patient stable for discharge with close follow-up to primary care provider. Return parameters discussed. Case discussed with Dr. Canales Undiagnosed new problem with uncertain prognosis? @ -No Drug Therapy requiring intensive monitoring for toxicity (Heparin, Nitro, Insulin, Cardizem)? @ -No Were any procedures done? @ -No Diagnosis/symptom? @ -Dizziness Acute, or Chronic, or Acute on Chronic? @ -Acute Uncomplicated (without systemic symptoms) or Complicated (systemic symptoms)? @ -Uncomplicated Side effects of treatment? @ -No Exacerbation, Progression, or Severe Exacerbation? @ -No Poses a threat to life or bodily function? How? (Chest pain, [place], [place], pneumonia, PE, COPD, DKA, ARF, appy, cholecystitis, CVA, Diverticulitis, Homicidal, Suicidal, threat to staff... and all critical care pts) @ -No - Lab Data Lab Results 11/04/24 11/04/24 11/04/24 Range/Units 12:35 13:22 13:22 Urine Color Colorless Urine Appearance Clear (Clear) Urine pH 5.0 (5.0-8.0) Ur Specific [place] 1.046 H (1.001-1.035) Urine Protein Negative (Negative) Urine Glucose (UA) 4+ H (Negative) Urine Ketones Negative (Negative) Urine Blood Small H (Negative) Urine Nitrite Negative (Negative) Urine Bilirubin Negative (Negative) Urine Urobilinogen <2.0 (<2.0) mg/dL Ur Leukocyte Esterase Trace H (Negative) Urine RBC 4 (0-5) /hpf Urine WBC 5 (0-5) /hpf Ur Squamous Epith Cells 4 (0-4) /hpf Urine Mucus Rare H (None) /hpf Urine HCG, Qual Not Detected (Not Detectd) Influenza Type A (PCR) Not Detected (Not Detectd) Influenza Type B (PCR) Not Detected (Not Detectd) RSV (PCR) Not Detected (Not Detectd) SARS-CoV-2 (PCR) Not Detected (Not Detectd) Disposition Clinical Impression: Vertigo Disposition: HOME SELF-CARE Condition: Good Instructions (If sedation given, give patient instructions): Dizziness (ED) Additional Instructions: Please return to the Emergency Department if symptoms worsen or any other concerns. Follow-up with primary care provider in regard to glucose within your urine. Is patient prescribed a controlled substance at d/c from ED?: No Referrals: None,Stated [Primary Care Provider] - 1-2 days Time of Disposition: 14:39
[2024-11-04] MEDS: ACETAMINOPHEN TAB 325 MG TAB PO STA (12:35)
[2024-11-04] MEDS: MECLIZINE 12.5 MG TAB PO STA (12:35)
[2024-11-04 13:21] VITALS: RESP 18; TEMP 97.8
[2024-11-04 14:10] LABS: Appearance,Urine Clear (Clear); Bilirubin,Urine Negative (Negative); Blood,Urine Small (Negative); Color,Urine Colorless; Glucose,Urine (UA) 4+ (Negative); Ketones,Urine Negative (Negative); Leukocyte Esterase,Urine Trace (Negative); Mucus,Urine Rare /hpf; Nitrite,Urine Negative (Negative); Protein,Urine Negative (Negative); RBC,Urine 4 /hpf (0-5); Squamous Epithelial Cell,Urine 4 /hpf (0-4); Urobilinogen,Urine <2.0 mg/dL (<2.0); WBC,Urine 5 /hpf (0-5)
[2024-11-04 14:12] LABS: Specific Gravity,Urine 1.046 (1.001-1.035)
[2024-11-04 14:25] LABS: Influenza A Not Detected (Not Detectd); Influenza B Not Detected (Not Detectd); RSV Not Detected (Not Detectd)
[2024-11-04 14:48] VITALS: BP 126/78; PULSE 89
== END 2024-11-04 14:48 | disposition home or self-care (01) ==
LOC: EC 11:52
DX: R42 Dizziness and giddiness (principal); F17.290 Nicotine dependence, other tobacco product, uncomplicated; Z88.8 Allergy status to other drugs, medicaments and biological substances
CPT/HCPCS: 81001; 81025; 87636; 99284

== ENCOUNTER 2024-12-19 16:28 | Emergency (ER) | payer BC, OTHER ==
--- NOTE | 2024-12-19 16:56 | ED ---
General Adult HPI - General Chief complaint: ENT Stated complaint: LEFT EAR PAIN/DISCHARGE Time Seen by Provider: 12/19/24 16:34 Source: patient, RN notes reviewed Mode of arrival: ambulatory Limitations: no limitations - History of Present Illness Initial comments: 29-year-old female presents to the emergency department for evaluation of left ear pain. Patient states that she picked at something in the ear canal recently and used a Q-tip. She notes that since then she has had increased pain to the left ear. She does note some drainage as well although she is not sure what color it is. She denies any fever, chills. She notes a history of tachycardia. Denies any other significant past medical history. - Related Data Home Medications Medication Instructions Recorded Confirmed buPROPion [Wellbutrin] 100 mg PO BID 09/14/18 09/14/18 Previous Rx's Medication Instructions Recorded Levothyroxine Sodium [Synthroid] 25 mcg PO DAILY@0630 #30 tab 09/25/17 Levothyroxine Sodium [Synthroid] 50 mcg PO DAILY 14 Days #14 tab 09/14/18 Meclizine [Antivert] 25 mg PO TID PRN #30 tab 06/27/23 metFORMIN HCL 500 mg PO BID #60 tablet 06/27/23 Acyclovir [Zovirax] 800 mg PO TID #30 tab 05/17/24 Doxycycline [Vibramycin] 100 mg PO BID #13 capsule 05/17/24 metFORMIN HCL [Glucophage] 500 mg PO BID #42 tab 05/17/24 metroNIDAZOLE [Flagyl] 500 mg PO BID #13 tab 05/17/24 Fluconazole 150 mg PO DIRECTED PRN #2 tab 09/19/24 Nitrofurantoin Monohyd/M-Cryst 100 mg PO Q12HR #10 cap 09/19/24 [Macrobid] Allergies Allergy/AdvReac Type Severity Reaction Status Date / Time phenazopyridine [From Azo] Allergy Itching Verified 12/19/24 16:31 Review of Systems ROS Statement: Those systems with pertinent positive or pertinent negative responses have been documented in the HPI. ROS Other: All systems not noted in ROS Statement are negative. Past Medical History Past Medical History: Thyroid Disorder Additional Past Medical History / Comment(s): in past took med for thyroid but taken off it 2012 History of Any Multi-Drug Resistant Organisms: None Reported Past Surgical History: No Surgical Hx Reported Past Anesthesia/Blood Transfusion Reactions: Motion Sickness Additional Past Anesthesia/Blood Transfusion Reaction / Comment(s): never had general aa Past Psychological History: Depression Smoking Status: Current some day smoker, Vaper Past Alcohol Use History: Rare Past Drug Use History: Marijuana - Past Family History Father Family Medical History: Diabetes Mellitus Mother Family Medical History: CVA/TIA, Diabetes Mellitus Additional Family Medical History / Comment(s): depression General Exam Limitations: no limitations General appearance: alert, in no apparent distress Head exam: Present: atraumatic, normocephalic, normal inspection Eye exam: Present: normal appearance, PERRL, EOMI. Absent: scleral icterus, conjunctival injection, periorbital swelling ENT exam: Present: TM's normal bilaterally. Absent: normal external ear exam (Edematous left ear canal) Respiratory exam: Present: normal lung sounds bilaterally. Absent: respiratory distress, wheezes, rales, rhonchi, stridor Cardiovascular Exam: Present: normal rhythm, tachycardia, normal heart sounds. Absent: systolic murmur, diastolic murmur, rubs, gallop, clicks Neurological exam: Present: alert, oriented X3 Psychiatric exam: Present: normal affect, normal mood Skin exam: Present: warm, dry, intact, normal color. Absent: rash Course Vital Signs 12/19/24 12/19/24 12/19/24 16:29 17:06 17:54 Temperature 98.0 F 98.7 F Pulse Rate 116 H 110 H 111 H Respiratory 18 17 Rate Blood Pressure 122/93 154/93 O2 Sat by Pulse 97 97 Oximetry Medical Decision Making - Medical Decision Making Was pt. sent in by a medical professional or institution (, PA, NEWS WIRE PHOTO OPERATOR, urgent care, hospital, or detention...) When possible be specific @ -No Did you speak to anyone other than the patient for history (EMS, parent, family, police, friend...)? What history was obtained from this source @ -No Did you review nursing and triage notes (agree or disagree)? Why? @ -I reviewed and agree with nursing and triage notes Were old charts reviewed (outside hosp., previous admission, EMS record, old EKG, old radiological studies, urgent care reports/EKG's, detention records)? Report findings @ -No old charts were reviewed Differential Diagnosis (chest pain, altered mental status, abdominal pain women, abdominal pain men, vaginal bleeding, weakness, fever, dyspnea, syncope, headache, dizziness, GI bleed, back pain, seizure, CVA, palpatations, mental health, musculoskeletal)? @ -otitis media, otitis externa, this list is not all inclusive EKG interpreted by me (3pts min.). @ -none X-rays interpreted by me (1pt min.). @ -None done CT interpreted by me (1pt min.). @ -None done U/S interpreted by me (1pt. min.). @ -None done What testing was considered but not performed or refused? (CT, X-rays, U/S, labs)? Why? @ -None What meds were considered but not given or refused? Why? @ -None Did you discuss the management of the patient with other professionals (professionals i.e. , PA, NEWS WIRE PHOTO OPERATOR, lab, RT, psych nurse, social services director, locomotive engineer diesel, teacher, ski patrol officer, rifle case repairer)? Give summary @ -No Was smoking cessation discussed for >3mins.? @ -No Was critical care preformed (if so, how long)? @ -No Were there social determinants of health that impacted care today? How? (Homelessness, low income, unemployed, alcoholism, drug addiction, transportation, low edu. Level, literacy, decrease access to med. care, half-way, rehab)? @ -No Was there de-escalation of care discussed even if they declined (Discuss DNR or withdrawal of care, Hospice)? DNR status @ -No What co-morbidities impacted this encounter? (DM, HTN, Smoking, COPD, CAD, Cancer, CVA, ARF, Chemo, Hep., AIDS, mental health diagnosis, sleep apnea, morb id obesity)? @ -None Was patient admitted / discharged? Hospital course, mention meds given and route, prescriptions, significant lab abnormalities, going to OR and other pertinent info. @ -Discharge. Patient presented for left ear pain. Patient has erythematous erythematous left ear canal, TM appears to be intact and not erythematous or bulging. Patient will be started on eardrops. She will be discharged home. She is understanding agreeable plan. Patient stable for discharge. Case discussed with Dr. Jimenez. Undiagnosed new problem with uncertain prognosis? @ -No Drug Therapy requiring intensive monitoring for toxicity (Heparin, Nitro, Insulin, Cardizem)? @ -No Were any procedures done? @ -No Diagnosis/symptom? @ -Otitis externa Acute, or Chronic, or Acute on Chronic? @ -Acute Uncomplicated (without systemic symptoms) or Complicated (systemic symptoms)? @ -Uncomplicated Side effects of treatment? @ -No Exacerbation, Progression, or Severe Exacerbation? @ -No Poses a threat to life or bodily function? How? (Chest pain, [place], [place], pneumonia, PE, COPD, DKA, ARF, appy, cholecystitis, CVA, Diverticulitis, Homicidal, Suicidal, threat to staff... and all critical care pts) @ -No Disposition Clinical Impression: Otitis externa Disposition: HOME SELF-CARE Condition: Stable Instructions (If sedation given, give patient instructions): Chapis's Ear (ED) Additional Instructions: Please utilize 4 eardrops in the left ear twice a day for the next 7 days. Follow-up with your doctor. Return to the emergency department for new or worsening symptoms. Is patient prescribed a controlled substance at d/c from ED?: No Referrals: None,Stated [Primary Care Provider] - 1-2 days
[2024-12-19] MEDS: CIPROFLOXACIN-DEXAMETH 0.3-0.1% DROPS 7.5 ML BTL LEFT EAR STA (17:47)
[2024-12-19 17:56] VITALS: BP 154/93; PULSE 111; RESP 17; TEMP 98.7
== END 2024-12-19 17:56 | disposition home or self-care (01) ==
LOC: EC 16:28
DX: H60.92 Unspecified otitis externa, left ear (principal); F17.290 Nicotine dependence, other tobacco product, uncomplicated; Z88.8 Allergy status to other drugs, medicaments and biological substances
CPT/HCPCS: 99282